=== PATIENT | female | born 2000 | race Caucasian/White ===

== ENCOUNTER 2019-10-24 21:20 | Emergency (ER) | payer SELFPAY ==
[2019-10-24 21:23] VITALS: BP 140/94; PULSE 86; RESP 16; TEMP 37.1; O2SAT 100
--- NOTE | 2019-10-24 21:40 | PC.NURSE ---
Reports that she is having difficulty urinating and is unable to provided urine at this time.
--- NOTE | 2019-10-24 21:48 | PC.NURSE ---
Patient to restroom to try for sample
[2019-10-24 21:52] LABS: Basophils Absolute Auto 0.1 K/mm3 (0.0-0.1); Basophils Percent Auto 0.8 % (0.2-1.2); Eosinophils Absolute Auto 0.1 K/mm3 (0-0.3); Eosinophils Percent Auto 0.9 % (0-4.4); Hematocrit 38.1 % (37.0-47.0); Hemoglobin 12.9 g/dL (12.0-15.0); Immature Granulocyte Absolute 0.02 K/mm3 (0.00-0.031); Immature Granulocyte Percent A 0.2 % (0-0.5); Lymphocytes Absolute Auto 3.24 K/mm3 (0.9-3.2); Lymphocytes Percent Auto 37.9 % (18.3-44.2); Mean Corpuscular HGB Conc 33.9 g/dl (32-36); Mean Corpuscular Hemoglobin 32.7 pg (26-34); Mean Corpuscular Volume 96.7 fl (80-100); Mean Platelet Volume 10.8 fl (7.4-10.4); Monocytes Absolute Auto 0.5 K/mm3 (0.1-0.6); Monocytes Percent Auto 6.1 % (2.6-8.5); Neutrophils Absolute Auto 4.6 K/mm3 (1.3-6.7); Neutrophils Percent Auto 54.1 % (45.5-73.1); Platelet Count Result 227 k/mm3 (150-375); Red Blood Count 3.94 M/mm3 (4.2-5.4); White Blood Count 8.6 K/mm3 (4.5-10.0)
[2019-10-24 22:01] LABS: Add Urine Microscopic? YES; Appearance Urine Cloudy (Clear); Bacteria Urine Trace /hpf; Bilirubin Urine Negative (Negative); Blood Urine 2+ (Negative); Color Urine Yellow (Yellow); Glucose Urine UA Negative (Negative); Ketones Urine Negative (Negative); Leukocyte Esterase Ur 1+ LEU/UL (Negative); Mucus Urine Rare /lpf; Nitrate Urine Negative (Negative); Protein Urine 1+ mg/dL (Negative); Specific Grav Ur 1.017 (1.001-1.035); Squamous Epithelial Cell Urine Many /hpf (Few); Urobilinogen Urine Negative mg/dL (<2.0)
[2019-10-24 22:06] LABS: Anion Gap 10 mmol/L (8-16); Blood Urea Nitrogen 16 mg/dL (7-17); Calcium 9.3 mg/dL (8.4-10.2); Carbon Dioxide 24 mmol/L (22-30); Chloride 104 mmol/L (98-107); Estimated Glomerular Filt Rate > 60; Glucose 97 mg/dL (65-105); Potassium 3.4 mmol/L (3.4-5.0); Sodium 138 mmol/L (137-145)
[2019-10-24 22:26] VITALS: BP 125/77; PULSE 81; RESP 16; TEMP 36.1; O2SAT 100
--- NOTE | 2019-10-24 22:26 | ED.ABDPAIN ---
HPI - Abdominal Pain General Chief Complaint: Abdominal Pain Stated Complaint: kidney problems Time Seen by Provider: 10/24/19 22:15 History of Present Illness HPI narrative: Patient presents with diffuse abdominal pain and bilateral flank pain. She gives it an 8 out of 10. It is diffuse. she has had this for 3 days. She has a history of kidney infection. 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 She has not had any fever with this illness. She currently does not have a PCP or an TOOLMAKER HELPER. Her son is 3 years old. He has no surgical history. Smoke cigarettes, drinks alcohol, and does smoke marijuana. MD elicited complaint: abdominal pain and flank pain Pertinent past history: other (Kidney infections) Onset (ago): day(s) Pain Consistency: constant Location: diffuse Severity: severe Radiation: none Migration to: no migration Exacerbating factors: nothing Relieving factors: nothing Related Data Allergies Allergy/AdvReac Type Severity Reaction Status Date / Time ketorolac [From Toradol] Allergy Itching Verified 10/24/19 21:29 Review of Systems Review of Systems: Narrative: CONSTITUTIONAL: Denies fever, chills, or sweats. EYES: Denies visual changes, redness, or discharge. ENT: Denies rhinorrhea, congestion, sore throat, or otalgia. CARDIOVASCULAR: Denies chest pain, palpitations, or edema. RESPIRATORY: Denies cough or dyspnea. GASTROINTESTINAL: He has abdominal pain, and nausea, vomiting, but not or diarrhea. GENITOURINARY: Denies dysuria or hematuria. SKIN: Denies rash or itching. MUSCULOSKELETAL: Denies back pain, joint pain, or myalgia. NEUROLOGIC: Denies headache, numbness, or weakness. . All systems reviewed & are unremarkable except as noted in HPI and below PMFSH Surgical History Surgical History No pertinent past surgical history Family History Family History (Updated 12/26/10 @ 15:21 by DOCTOR UNKNOWN) Other Hypertension Social History Social History (Updated 10/24/19 @ 22:30 by Cheryl Bey MD) Smoking status: Current every day smoker Alcohol intake: current Substance use: current Substance use type: marijuana Exam Narrative: Exam Narrative: GENERAL: Well-appearing, well-nourished, and rocking in pain. Very thin. HEAD: Normocephalic, atraumatic. EYES: PERRLA and EOMI. ENT: Nares clear, no rhinorrhea or epistaxis. Mucous membranes moist. NECK: Supple. CHEST: Clear to auscultation. No respiratory distress. HEART: Regular rate and rhythm. No murmur heard. Normal peripheral pulses. ABDOMEN: Diffusely tender, nondistended, normal active bowel sounds. EXTREMITIES: Normal range of motion. No edema. SKIN: Warm, dry, no rash. NEURO: No focal deficits. Alert and oriented x3. PSYCH: Normal mood and affect. Course Vital Signs Vital signs: Vital Signs Temperature 98.7 F 10/24/19 21:23 Pulse Rate 86 10/24/19 21:23 Respiratory Rate 16 10/24/19 21:23 Blood Pressure 140/94 H 10/24/19 21:23 Pulse Oximetry 100 10/24/19 21:23 Temperature 97.0 F L 10/24/19 22:26 Pulse Rate 70 10/25/19 00:43 Respiratory Rate 18 10/25/19 00:43 Blood Pressure 114/76 10/25/19 00:43 Pulse Oximetry 98 10/25/19 00:43 MDM - Abdominal Pain Medical Records Attestation: I reviewed the patient's medical records. Lab Data Attestation: I reviewed the patient's lab results. Result diagrams: 10/24/19 21:41 10/24/19 21:41 Labs: Lab Results 10/24/19 10/24/19 10/24/19 Range/Units 21:41 21:41 21:50 WBC 8.6 (4.5-10.0) K/mm3 RBC 3.94 L (4.2-5.4) M/mm3 Hgb 12.9 (12.0-15.0) g/dL Hct 38.1 (37.0-47.0) % MCV 96.7 (80-100) fl MCH 32.7 (26-34) pg MCHC 33.9 (32-36) g/dl RDW 12.0 (11.5-14.5) % Plt Count 227 (150-375) k/mm3 MPV 10.8 H (7.4-10.4) fl Immature Gran % (Auto) 0.2 (0-0.5) % Neut % (Auto) 54.1 (45.5-73.1)
[2019-10-24] MEDS: MORPHINE SULFATE 4 MG/ML INJ IV PUSH ×2 (22:33→23:56)
[2019-10-24] MEDS: SODIUM CHLORIDE 0.9% IV 1,000 ML 999 ML IV CONT (22:34)
--- NOTE | 2019-10-24 22:34 | PC.NURSE ---
Fluids and medication provided at this time.
[2019-10-24] MEDS: ONDANSETRON INJ 4 MG/2 ML VIAL IV PUSH (22:40)
[2019-10-24 23:18] VITALS: BP 123/65; PULSE 67; RESP 16; O2SAT 99
[2019-10-24] MEDS: METOCLOPRAMIDE HCL INJ 10 MG/2 ML VIAL IV PUSH (23:30)
[2019-10-24 23:57] VITALS: BP 122/97; PULSE 83; RESP 16; O2SAT 99
[2019-10-25] MEDS: SODIUM CHLORIDE 0.9% IV 1,000 ML 999 ML IV CONT (00:02)
[2019-10-25 00:43] VITALS: BP 114/76; PULSE 70; RESP 18; O2SAT 98
[2019-10-25 01:04] VITALS: BP 114/75; PULSE 60; RESP 18; O2SAT 99
--- NOTE | 2019-10-31 19:30 | PC.NURSE ---
LATE ENTRY NS stopped prior to pt discharge. This note is being entered to document information to the patient's record. The following information was omitted on [10/31/2019], by [jude zhu].
== END 2019-10-25 01:07 | disposition home or self-care (01) ==
PROVIDERS: Emergency Provider Emergency Medicine
DX: N39.0 Urinary tract infection, site not specified (principal); F17.210 Nicotine dependence, cigarettes, uncomplicated
CPT/HCPCS: 36415; 80048; 81001; 81025; 85025; 87086; 87088; 96361; 96365; 96375; 96376; 99284; J0696; J2270; J2405; J2765; J7030

== ENCOUNTER 2020-01-01 23:08 | Emergency (ER) | payer MEDICAID, SELFPAY ==
--- NOTE | ~2020-01-01 | CT_ITS ---
EXAMINATION: CT abdomen pelvis w con DATE: 01/02/2020 01:20 INDICATION: Abdominal pain. Flank pain. Hematuria. TECHNIQUE: Computed tomography (CT) of the abdomen and pelvis was performed with 100 mL Omnipaque 350 intravenous contrast. Automated exposure control and iterative reconstruction technique were employe d. The dose-length product was 191.52 mGy-cm. COMPARISON: None. FINDINGS: The visualized portions of the lung bases are clear without pneumonia or pleural effusion. The heart size is normal. No pericardial effusion. The liver, gallbladder, spleen, pancreas, adrenal glands, and kidneys are normal. The periuterine and ovarian veins are enlarged, consistent with pelvi c venous insufficiency. There are no dilated loops of bowel. The appendix is normal. There are no pat hologically enlarged lymph nodes. There is trace pelvic ascites. There are chronic bilateral L5 pars defects. There is 3 mm anterolisthesis of L5 on S1. IMPRESSION: 1. Pelvic venous insufficiency. Reviewed, dictated and finalized at location A.
[2020-01-01 23:23] VITALS: BP 138/78; PULSE 97; RESP 14; TEMP 36.4; O2SAT 100
--- NOTE | 2020-01-01 23:36 | PC.NURSE ---
Pt. states she is unable to void.
--- NOTE | 2020-01-01 23:40 | ED.ABDPAIN ---
HPI - Abdominal Pain General Chief Complaint: Abdominal Pain Stated Complaint: hematuria Time Seen by Provider: 01/01/20 23:39 Source: patient Mode of arrival: ambulatory Limitations: no limitations History of Present Illness HPI narrative: Patient is a 19-year-old female who presents for evaluation of dysuria, hematuria and bilateral flank pain. Pt with 24 hours of worsening symptoms. Pt denies fever or chills. She reports general malaise and nausea. Flank pain is aching in nature. No vaginal bleeding. Pt with history of UTIs and had two ciprofloxacin tablets at home which she had leftover from a previous UTI, so she took both of those, but has not improved. Pt reporting history of kidney stones in the past as well. Patient denies any vaginal discharge or vaginal bleeding. Related Data Allergies Allergy/AdvReac Type Severity Reaction Status Date / Time ketorolac [From Toradol] Allergy Itching Verified 01/01/20 23:26 Review of Systems Review of Systems: Narrative: CONSTITUTIONAL: Denies fever, chills, or sweats. ENT: Denies rhinorrhea, congestion, sore throat, or otalgia. CARDIOVASCULAR: Denies chest pain, palpitations, or edema. RESPIRATORY: Denies cough or dyspnea. GASTROINTESTINAL: Reports suprapubic pressure, nausea GENITOURINARY: Denies dysuria or hematuria. SKIN: Denies rash or itching. MUSCULOSKELETAL: Denies back pain, joint pain, reports myalgias NEUROLOGIC: Denies headache, numbness, or weakness. [facility] Past Medical History Medical History Nephrolithiasis Pyelonephritis Recurrent urinary tract infection Surgical History Surgical History No pertinent past surgical history Family History Family History (Updated 12/26/10 @ 15:21 by DOCTOR UNKNOWN) Other Hypertension Social History Social History Smoking status: Current every day smoker Alcohol intake: current Substance use: current Substance use type: marijuana Exam Narrative: Exam Narrative: GENERAL: Awake, alert, conversant HEAD: Normocephalic, atraumatic. EYES: PERRLA and EOMI. ENT: Nares clear, no rhinorrhea or epistaxis. Mucous membranes moist. NECK: Supple. CHEST: No respiratory distress, breathing even and non labored HEART: Regular rate, sinus rhythm ABDOMEN:Non distended, mild tenderness in suprapubic area, bilateral flank tenderness EXTREMITIES: Normal range of motion. No edema. SKIN: Warm, dry, no rash. NEURO:No focal deficits. Alert and oriented x3 Course Vital Signs Vital signs: Vital Signs Temperature 36.4 C 01/01/20 23:23 Pulse Rate 97 01/01/20 23:23 Respiratory Rate 14 01/01/20 23:23 Blood Pressure 138/78 01/01/20 23:23 Pulse Oximetry 100 01/01/20 23:23 Temperature 36.4 C 01/01/20 23:23 Pulse Rate 97 01/01/20 23:23 Respiratory Rate 14 01/01/20 23:23 Blood Pressure 138/78 01/01/20 23:23 Pulse Oximetry 100 01/01/20 23:23 MDM - Abdominal Pain MDM Narrative Medical decision making narrative: Patient presenting for evaluation of flank pain, myalgias, dysuria and hematuria. At the time of assessment, ABCs are intact and vital signs are stable. Patient is afebrile. She has flank pain and mild suprapubic tenderness on exam. Symptoms and findings are concerning for possible pyelonephritis. Patient with leukocytosis that is mild. She has a urinary tract infection. Patient treated with a dose of Rocephin in the ER. CT scan shows no evidence of nephrolithiasis. Patient tolerating oral intake feeling much improved after IV fluids, pain medications. Patient will be discharged home to finish antibiotic course. She was advised to return should her symptoms change or worsen. Differential Diagnosis Differential diagnosis: Likely abdominal pain, constipation, gastroenteritis and other (Pyelonephritis, urinary tract infection) Lab
[2020-01-01 23:49] LABS: Basophils Absolute Auto 0.1 K/mm3 (0.0-0.1); Basophils Percent Auto 0.4 % (0.2-1.2); Eosinophils Absolute Auto 0.1 K/mm3 (0-0.3); Eosinophils Percent Auto 0.6 % (0-4.4); Hematocrit 39.8 % (37.0-47.0); Hemoglobin 13.7 g/dL (12.0-15.0); Immature Granulocyte Absolute 0.05 K/mm3 (0.00-0.031); Immature Granulocyte Percent A 0.4 % (0-0.5); Lymphocytes Absolute Auto 2.27 K/mm3 (0.9-3.2); Lymphocytes Percent Auto 18.3 % (18.3-44.2); Mean Corpuscular HGB Conc 34.4 g/dl (32-36); Mean Corpuscular Hemoglobin 33.2 pg (26-34); Mean Corpuscular Volume 96.4 fl (80-100); Mean Platelet Volume 10.4 fl (7.4-10.4); Monocytes Absolute Auto 0.7 K/mm3 (0.1-0.6); Monocytes Percent Auto 5.6 % (2.6-8.5); Neutrophils Absolute Auto 9.3 K/mm3 (1.3-6.7); Neutrophils Percent Auto 74.7 % (45.5-73.1); Platelet Count Result 205 k/mm3 (150-375); Red Blood Count 4.13 M/mm3 (4.2-5.4); Red Cell Distribution Width 11.9 % (11.5-14.5); White Blood Count 12.4 K/mm3 (4.5-10.0)
[2020-01-01] MEDS: ONDANSETRON INJ 4 MG/2 ML VIAL IV PUSH (23:53)
[2020-01-01] MEDS: SODIUM CHLORIDE 0.9% IV 1,000 ML 999 ML IV CONT (23:53)
[2020-01-02 00:05] LABS: Anion Gap 12 mmol/L (8-16); Blood Urea Nitrogen 13 mg/dL (7-17); Calcium 9.6 mg/dL (8.4-10.2); Carbon Dioxide 23 mmol/L (22-30); Chloride 105 mmol/L (98-107); Estimated CRCL calculation 76 ml/min; Estimated Glomerular Filt Rate > 60; Glucose 105 mg/dL (65-105); Potassium 3.7 mmol/L (3.4-5.0); Sodium 140 mmol/L (137-145)
--- NOTE | 2020-01-02 00:15 | PC.NURSE ---
Pt. states she still cannot void at this time.
[2020-01-02] MEDS: MORPHINE SULFATE (*CRX) 4 MG/ML INJ IV PUSH (00:56)
[2020-01-02 01:00] VITALS: BP 123/65; PULSE 94; RESP 12; O2SAT 90
[2020-01-02 01:08] LABS: Add Urine Microscopic? YES; Appearance Urine Clear (Clear); Bacteria Urine Trace /hpf; Bilirubin Urine Negative (Negative); Blood Urine 2+ (Negative); Color Urine Colorless (Yellow); Glucose Urine UA Negative (Negative); Ketones Urine Negative (Negative); Leukocyte Esterase Ur 2+ LEU/UL (Negative); Nitrate Urine Negative (Negative); Protein Urine Negative (Negative); RBC Urine 0-2 /hpf (0-2); Specific Grav Ur 1.005 (1.001-1.035); Squamous Epithelial Cell Urine Rare /hpf (Few); Urobilinogen Urine Negative mg/dL (<2.0); WBC Urine 51-75 /hpf
[2020-01-02 02:10] VITALS: BP 119/80; PULSE 88; RESP 17; O2SAT 99
== END 2020-01-02 02:10 | disposition home or self-care (01) ==
PROVIDERS: Emergency Medicine; Emergency Provider Emergency Medicine
DX: N12 Tubulo-interstitial nephritis, not specified as acute or chronic (principal); F17.200 Nicotine dependence, unspecified, uncomplicated; Z87.442 Personal history of urinary calculi; I87.2 Venous insufficiency (chronic) (peripheral)
CPT/HCPCS: 36415; 74177; 80048; 81001; 81025; 85025; 87086; 96361; 96365; 96375; 99284; J0131; J0696; J2270; J2405; J7030; Q9967

== ENCOUNTER 2020-01-19 12:09 | Outpatient (CLI) | payer OTHER, MEDICAID, SELFPAY ==
--- NOTE | ~2020-01-19 | US_ITS ---
EXAMINATION: US OB <=14 wk fetus w TV EXAM DATE: 01/19/2020 13:03 INDICATION: Vaginal cramping. Dating. 1st trimester. TECHNIQUE: Pelvic obstetrical transabdominal sonogram was performed by a technologist. There are mu ltiple grayscale and Doppler images available for interpretation. There are no earlier studies of th is gestation for comparison. FINDINGS: Uterus measures 9.2 x 4.3 x 4.6 cm. There is intrauterine gestation sac. The 3 mm crown- rump length corresponds to estimated gestational age by ultrasound of 5 weeks 6 days, estimated date of confinement 09/14/2020. Possible identification of cardiac activity at 110 bpm. Yolk sac not specif ically identified. There is no sonographic evidence of subchorionic hemorrhage. Ovaries are morpho logically normal. IMPRESSION: Early intrauterine gestation sac and pole, possibly with identification of a heart rate. Yolk sac also not definitively confirmed. Consider 1-2 week follow-up ultrasound. Reviewed, dictated and finalized at location B. UCTION STAFF WORKER IMPRESSION: Early intrauterine gestation sac and pole, possibly with yolanda ntification of a heart rate. Yolk sac also not definitively confirmed. Consider 1-2 week follow-up ultrasound.
== END 2020-01-19 12:10 | disposition home or self-care (01) ==
PROVIDERS: Visit Provider Obstetrics & Gynecology Gynecology
DX: O26.841 Uterine size-date discrepancy, first trimester (principal); Z3A.00 Weeks of gestation of pregnancy not specified
CPT/HCPCS: 76801; 76817

== ENCOUNTER 2020-01-22 14:05 | Emergency (ER) | payer OTHER, MEDICAID, SELFPAY ==
[2020-01-22] VITALS (7 sets, daily range): BP systolic 104–128; BP diastolic 68–76; PULSE 69–87; RESP 14–19; TEMP 36.8–36.9; O2SAT 99–100
--- NOTE | ~2020-01-22 | CT_ITS ---
EXAMINATION: CTA chest PE protocol DATE: 01/22/2020 19:33 INDICATION: Shortness of breath. TECHNIQUE: Computed tomography angiography (CTA) of the chest was performed with 100 mL Omnipaque-350 intravenous contrast timed to evaluate the pulmonary arteries. Coronal maximum intensity projection 3D-reconstructions were created by the technologist. Automated exposure control and iterative reconst ruction technique were employed. The dose-length product was 228.07 mGy-cm. COMPARISON: CT abdomen and pelvis 01/02/2020 FINDINGS: There is no pneumonia or pleural effusion. There is a 3 mm nodule in right lung, likely veronica ign. The heart size is normal. No pericardial effusion. There is no pulmonary embolus. There are Schm orl's nodes at multiple levels in the spine. IMPRESSION: 1. No pulmonary embolus. Reviewed, dictated and finalized at location A. ERMAN IMPRESSION: 1. No pulmonary embolus.
--- NOTE | ~2020-01-22 | US_ITS ---
EXAMINATION: US OB <=14 wk fetus w TV DATE: 01/22/2020 16:36 INDICATION: Lower abdominal pain and cramping during first trimester . TECHNIQUE: Real-time pelvic ultrasound utilizing both a transvaginal and transabdominal probe was pe rformed. The interpreting radiologist was not present for the study. COMPARISON: Pelvic ultrasound dated 01/19/[address] abdomen and pelvis dated 01/02/2020 FINDINGS: The uterus measures 8.9 x 4.8 x 4.3 cm. There is an intrauterine gestational sac. A yolk sac and fet al pole are identified. The crown rump length measures 5 mm, which correlates with an estimated gesta tional age of 6 weeks and 2 days which coincides exactly with the earlier study. heart motion i s identified measuring 123 beats per minute (bpm) by M-mode Doppler. Again seen are dilated bilateral gonadal and parametrial veins, left greater than right as was observed on the earlier CT. The right ovary measures 2.6 x 2.2 x 1.2 cm. The left ovary measures 2.4 x 2.2 x 2.0 cm. Vascular francia w identified at both ovaries on color Doppler. There are small amounts of anechoic free fluid along s yolanda the right ovary and in the cul-de-sac. IMPRESSION: 1. Single living fetus with heart rate of 123 bpm. 2. Gestational age by ultrasound of 6 weeks 2 day(s) +/- 4 day(s) with ultrasound estimated date of delivery ([facility]) of 09/14/2020. 2. Prominent bilateral gonadal and parametrial veins, left greater than right is also seen on prior C T which can be seen with pelvic vascular congestion syndrome. Reviewed, dictated and finalized at location A. ESS CHANGE CLERK IMPRESSION: 1. Single living fetus with heart rate of 123 bpm. 2. Gestational age by ultrasound of 6 weeks 2 day(s) +/- 4 day(s) with ultraso und estimated date of delivery ([facility]) of 09/14/2020. 2. Prominent bilateral gonadal and parametrial veins, left greater than right i s also seen on prior CT which can be seen with pelvic vascular congestion syndr ome.
--- NOTE | 2020-01-22 14:55 | ECG_ITS ---
Measurements Intervals [place] Rate: 94 P: 83 WV: 132 QRS: 71 QRSD: 85 T: -5 QT: 337 QTc: 422 Interpretive Statements SINUS RHYTHM BORDERLINE ST-T WAVE ABNORMALITY- INFERIOR LEADS BASELINE WANDER- V2-V6 BORDERLINE ECG Electronically Signed On 01-22-2020 15:49:01 PLANNING SUPERVISOR by Garret Chong D.O.
[2020-01-22 15:12] LABS: Basophils Percent Auto 0.5 % (0.2-1.2); Eosinophils Percent Auto 0.2 % (0-4.4); Hematocrit 39.1 % (37.0-47.0); Hemoglobin 13.6 g/dL (12.0-15.0); Immature Granulocyte Absolute 0.02 K/mm3 (0.00-0.031); Immature Granulocyte Percent A 0.2 % (0-0.5); Lymphocytes Absolute Auto 1.52 K/mm3 (0.9-3.2); Mean Corpuscular HGB Conc 34.8 g/dl (32-36); Mean Corpuscular Hemoglobin 33.2 pg (26-34); Mean Corpuscular Volume 95.4 fl (80-100); Mean Platelet Volume 10.1 fl (7.4-10.4); Monocytes Absolute Auto 0.4 K/mm3 (0.1-0.6); Monocytes Percent Auto 4.7 % (2.6-8.5); Neutrophils Percent Auto 75.4 % (45.5-73.1); Platelet Count Result 204 k/mm3 (150-375); Red Cell Distribution Width 12.3 % (11.5-14.5)
[2020-01-22 15:19] LABS: Anion Gap 13 mmol/L (8-16); Blood Urea Nitrogen 10 mg/dL (7-17); Calcium 9.9 mg/dL (8.4-10.2); Carbon Dioxide 25 mmol/L (22-30); Chloride 102 mmol/L (98-107); Estimated CRCL calculation 86 ml/min; Estimated Glomerular Filt Rate > 60; Glucose 92 mg/dL (65-105); Potassium 3.5 mmol/L (3.4-5.0); Sodium 140 mmol/L (137-145)
--- NOTE | 2020-01-22 15:52 | ED.SOB ---
HPI - SOB/Dyspnea General Chief Complaint: Shortness of Breath/Dyspnea Stated Complaint: 6 weeks , cramping, short of breath Time Seen by Provider: 01/22/20 15:43 Source: patient Mode of arrival: ambulatory Limitations: no limitations History of Present Illness HPI Narrative: Patient is a 20-year-old female complaining of shortness of breath x2 days. Patient also complaining of lower abdominal cramping, states that she is 6 weeks , denies any vaginal bleeding or discharge. Patient denies any chest pain, nausea vomiting diarrhea or fever. Related Data Home Medications Medication Instructions Recorded Confirmed -iciu fum-folic ac-om3 pkg PO 01/22/20 [Daily ] Allergies Allergy/AdvReac Type Severity Reaction Status Date / Time ketorolac [From Toradol] Allergy Mild Itching Verified 01/22/20 15:37 Review of Systems Review of Systems: All systems reviewed & are unremarkable except as noted in HPI and below Constitutional: Constitutional: Denies body ache(s), Denies chills, Denies excessive sweating, Denies fatigue, Denies fever(s), Denies headache(s), Denies lethargy, Denies malaise, Denies weakness and Denies weight loss Eyes: Eyes: Denies blurry vision, Denies change in vision and Denies loss of vision ENT: Denies dizziness, Denies ear discharge, Denies headache(s), Denies lip swelling, Denies epistaxis, Denies nasal congestion, Denies neck pain, Denies throat swelling and Denies tongue swelling Cardiovascular: Cardiovascular: Denies chest pain, Denies chest pain at rest, Denies chest pain with activity, Denies diaphoresis, Denies rapid heart rate, Denies edema, Denies irregular heart rhythm, Denies lightheadedness and Denies palpitations Respiratory: Respiratory: Denies chest congestion, Denies cough and Denies hemoptysis Gastrointestinal: Gastrointestinal: Denies abdominal pain, Denies melena, Denies hematochezia, Denies diarrhea, Denies nausea, Denies vomiting and Denies hematemesis Musculoskeletal: Musculoskeletal: Denies abnormal gait, Denies deformity, Denies joint swelling, Denies limited range of motion, Denies neck pain and Denies numbness Neurologic: Denies Abnormal speech present, Denies abnormal gait, Denies confusion, Denies dizziness, Denies headache(s), Denies focal weakness, Denies loss of vision, Denies numbness, Denies Other visual disturbances, Denies Sensory deficit (Neuro) and Denies weakness Psychiatric: Psychiatric: Denies confusion, Denies depression, Denies auditory hallucinations, Denies homicidal ideation and Denies suicidal ideation Endocrine: Endocrine: Denies cold intolerance, Denies excessive sweating, Denies fatigue, Denies heat intolerance and Denies palpitations Hematologic/Lymphatic: Hematologic/Lymphatic: Denies easy bleeding and Denies easy bruising Allergic/Immunologic: Allergic/Immunologic: Denies lip swelling, Denies throat swelling and Denies tongue swelling PMFSH Past Medical History Medical History Nephrolithiasis Pyelonephritis Recurrent urinary tract infection Surgical History Surgical History No pertinent past surgical history Family History Family History (Updated 12/26/10 @ 15:21 by DOCTOR UNKNOWN) Other Hypertension Social History Social History Smoking status: Current every day smoker Alcohol intake: current Substance use: current Substance use type: marijuana Gender identity (if verbalized by the patient): Female Exam Const: General: cooperative, healthy appearing, comfortable, no acute distress, well developed, alert and awake; No confusion Orientation/consciousness: oriented to person, oriented to place, oriented to time, patient oriented x3 and No confusion Limitations: no limitations HENMT: Head: normal to inspection, normocephalic and atrau
[2020-01-22 16:37] LABS: D Dimer 0.68 ug/mL (<0.48)
[2020-01-22 17:07] LABS: Add Urine Microscopic? YES; Appearance Urine Clear (Clear); Bacteria Urine Trace /hpf; Bilirubin Urine Negative (Negative); Blood Urine Negative (Negative); Color Urine Yellow (Yellow); Glucose Urine UA Negative (Negative); Ketones Urine Trace mg/dL (Negative); Leukocyte Esterase Ur Negative LEU/UL (Negative); Mucus Urine Rare /lpf; Nitrate Urine Negative (Negative); Protein Urine Negative (Negative); RBC Urine 0-2 /hpf (0-2); Specific Grav Ur 1.013 (1.001-1.035); Urobilinogen Urine Negative mg/dL (<2.0); WBC Urine 0-3 /hpf
[2020-01-22] MEDS: SODIUM CHLORIDE 0.9% IV 1,000 ML 999 ML IV CONT (19:37)
== END 2020-01-22 20:39 | disposition home or self-care (01) ==
PROVIDERS: Emergency Medicine; Emergency Provider Emergency Medicine
DX: O26.891 Other specified pregnancy related conditions, first trimester (principal); R06.00 Dyspnea, unspecified; R10.9 Unspecified abdominal pain; O99.331 Smoking (tobacco) complicating pregnancy, first trimester; F17.200 Nicotine dependence, unspecified, uncomplicated; Z87.442 Personal history of urinary calculi; Z87.440 Personal history of urinary (tract) infections; R94.31 Abnormal electrocardiogram [ECG] [EKG]; Z3A.01 Less than 8 weeks gestation of pregnancy
CPT/HCPCS: 36415; 71275; 76801; 76817; 80048; 81001; 84702; 85025; 85380; 93005; 96360; 99284; J7030; Q9967

== ENCOUNTER 2020-01-25 19:07 | Emergency (ER) | payer OTHER, MEDICAID, SELFPAY ==
[2020-01-25 19:36] VITALS: BP 131/67; PULSE 75; RESP 17; TEMP 36.5; O2SAT 100
--- NOTE | 2020-01-25 20:01 | ED.GENADULT ---
HPI - General Adult General Chief complaint: TREE TRIMMER Stated complaint: 6 weeks , spotting Time Seen by Provider: 01/25/20 19:45 Source: RN notes reviewed History of Present Illness HPI narrative: Patient presents emergency department from home for vaginal spotting. Patient states the itch 2 episodes of wiping with spotting this evening. States she is approximately [address] Baker. Patient was seen in the emergency department earlier this week with a ultrasound showing live intrauterine . She does note mild lower abdominal cramping she denies any fevers or chills chest pain shortness of breath or any other symptoms. Related Data Home Medications Medication Instructions Recorded Confirmed [id number] fum-folic ac-om3 pkg PO 01/22/20 [Daily ] Allergies Allergy/AdvReac Type Severity Reaction Status Date / Time ketorolac [From Toradol] Allergy Mild Itching Verified 01/25/20 19:38 Review of Systems Review of Systems: Narrative: Gen.: Denies fevers or chills ENT: Denies congestion Respiratory: Denies shortness of breath or cough CV: Denies chest pain or palpitations GI: Reports lower abdominal cramping, see HPI Musculoskeletal: Denies back pain or muscle pain Neuro: Denies numbness, tingling, weakness or focal weakness Skin: Denies rash Except as documented, all other systems reviewed and negative [facility] Past Medical History Medical History Nephrolithiasis Pyelonephritis Recurrent urinary tract infection Surgical History Surgical History No pertinent past surgical history Family History Family History (Updated 12/26/10 @ 15:21 by DOCTOR UNKNOWN) Other Hypertension Social History Social History Smoking status: Current every day smoker Alcohol intake: current Substance use: current Substance use type: marijuana Gender identity (if verbalized by the patient): Female Exam Narrative: Exam Narrative: APPEARANCE: No acute distress, nontoxic, resting in bed EYES: EOMI HEENT: Normocephalic, atraumatic, OMM RESPIRATORY: No respiratory distress Clear to auscultation bilaterally with no rhonchi wheezing or rales. CARDIOVASCULAR: Regular rate and rhythm without murmurs rubs or gallops. ABDOMINAL: Soft, nontender, nondistended, no rebound or guarding : Normal external exam, small amount of thick white discharge in vaginal canal cervix is closed the cervix has a small area of erythema at the 7 to 8 o'clock position no active bleeding the cervix is closed MUSCULOSKELETAl: Moves all extremities. No clubbing, cyanosis or edema. NEURO: Awake and alert. Following commands, speech normal, no focal deficits SKIN:: Warm, dry. No rashes lesions or abrasions PSYCHIATRIC: Normal affect/mood, Course Course Emergency Course: Reviewed old records. Patient has a positive blood type from 02/13/2016. Reviewed old ultrasound showing live intrauterine from 01/22/2020 Called and discussed with Dr. Baker presentation work-up agrees with plan for discharge and follow-up as an outpatient Discussed with patient results of workup and diagnosis. Discussed need for follow-up with primary care, proper use of medication, and reasons to return to the emergency department. Patient understands and agrees to current treatment plan Vital Signs Vital signs: Vital Signs Temperature 97.7 F 01/25/20 19:36 Pulse Rate 75 01/25/20 19:36 Respiratory Rate 17 01/25/20 19:36 Blood Pressure 131/67 01/25/20 19:36 Pulse Oximetry 100 01/25/20 19:36 Temperature 97.7 F 01/25/20 19:36 Pulse Rate 75 01/25/20 19:36 Respiratory Rate 17 01/25/20 19:36 Blood Pressure 131/67 01/25/20 19:36 Pulse Oximetry 100 01/25/20 19:36 Medical Decision Making Vital Signs Vital Signs: Vital Signs
[2020-01-25 20:26] LABS: Basophils Absolute Auto 0.1 K/mm3 (0.0-0.1); Basophils Percent Auto 0.9 % (0.2-1.2); Eosinophils Absolute Auto 0.2 K/mm3 (0-0.3); Eosinophils Percent Auto 2.1 % (0-4.4); Hematocrit 40.5 % (37.0-47.0); Hemoglobin 13.9 g/dL (12.0-15.0); Immature Granulocyte Absolute 0.02 K/mm3 (0.00-0.031); Immature Granulocyte Percent A 0.2 % (0-0.5); Immature Platelet Fraction Pct 14.1 % (0.9-11.2); Lymphocytes Absolute Auto 2.08 K/mm3 (0.9-3.2); Lymphocytes Percent Auto 25.4 % (18.3-44.2); Mean Corpuscular HGB Conc 34.3 g/dl (32-36); Mean Corpuscular Hemoglobin 33.3 pg (26-34); Mean Corpuscular Volume 97.1 fl (80-100); Mean Platelet Volume 11.8 fl (7.4-10.4); Monocytes Absolute Auto 0.6 K/mm3 (0.1-0.6); Monocytes Percent Auto 7.5 % (2.6-8.5); Neutrophils Absolute Auto 5.2 K/mm3 (1.3-6.7); Neutrophils Percent Auto 63.9 % (45.5-73.1); Platelet Count Result 142 k/mm3 (150-375); Red Blood Count 4.17 M/mm3 (4.2-5.4); Red Cell Distribution Width 12.2 % (11.5-14.5); White Blood Count 8.2 K/mm3 (4.5-10.0)
[2020-01-25 20:27] LABS: Add Urine Microscopic? NO; Appearance Urine Clear (Clear); Bilirubin Urine Negative (Negative); Blood Urine Negative (Negative); Color Urine Colorless (Yellow); Glucose Urine UA Negative (Negative); Ketones Urine Negative (Negative); Leukocyte Esterase Ur Negative LEU/UL (Negative); Nitrate Urine Negative (Negative); Protein Urine Negative (Negative); Specific Grav Ur 1.006 (1.001-1.035); Urobilinogen Urine Negative mg/dL (<2.0)
[2020-01-25 21:54] VITALS: BP 115/63; PULSE 76; RESP 16; TEMP 36.9; O2SAT 100
== END 2020-01-25 21:55 | disposition home or self-care (01) ==
PROVIDERS: Emergency Provider Emergency Medicine; Referring Provider Internal Medicine
DX: O20.0 Threatened abortion (principal); Z87.442 Personal history of urinary calculi; Z87.440 Personal history of urinary (tract) infections; F17.200 Nicotine dependence, unspecified, uncomplicated; Z3A.01 Less than 8 weeks gestation of pregnancy
CPT/HCPCS: 36415; 81003; 84702; 85025; 85055; 99283

== ENCOUNTER 2020-01-31 07:27 | Outpatient (CLI) | payer OTHER, SELFPAY ==
--- NOTE | ~2020-01-31 | US_ITS ---
EXAMINATION: US OB <= 14 weeks fetus EXAM DATE: 01/31/2020 07:57 INDICATION: Viability. Interval vaginal spotting. 1st trimester. TECHNIQUE: Pelvic obstetrical transabdominal sonogram was performed by a technologist. There are mu ltiple grayscale and Doppler images available for interpretation. Comparison is made to prior examina tion from 01/22/2020. FINDINGS: Uterus measures 10.2 x 8.3 x 5.9 cm. There is intrauterine gestation sac. pole with heart rate confirmed at 152 beats per minute. The 10 mm crown-rump length corresponds to estimated gestational age by ultrasound of 7 weeks 1 day. Yolk sac is identified. Development of small to mo derate-sized subchorionic hemorrhage measuring 2.3 x 0.7 x 1.7 cm. The left ovary was identified and is morphologically normal. IMPRESSION: 1. Live intrauterine gestation. 2. Development of small to moderate-sized subchorionic hematoma. Reviewed, dictated and finalized at location A. ING MACHINE OPERATOR AUTOMATIC
== END 2020-01-31 07:28 | disposition home or self-care (01) ==
PROVIDERS: Visit Provider Obstetrics & Gynecology Gynecology
DX: O46.91 Antepartum hemorrhage, unspecified, first trimester (principal); Z3A.01 Less than 8 weeks gestation of pregnancy
CPT/HCPCS: 76801

== ENCOUNTER 2020-02-10 14:05 | Emergency (ER) | payer OTHER, SELFPAY ==
[2020-02-10 14:11] VITALS: BP 133/74; PULSE 90; RESP 16; TEMP 36.3; O2SAT 100
[2020-02-10 14:31] LABS: Basophils Percent Auto 0.3 % (0.2-1.2); Eosinophils Percent Auto 0.1 % (0-4.4); Hematocrit 39.6 % (37.0-47.0); Hemoglobin 13.8 g/dL (12.0-15.0); Immature Granulocyte Absolute 0.03 K/mm3 (0.00-0.031); Immature Granulocyte Percent A 0.3 % (0-0.5); Lymphocytes Absolute Auto 1.66 K/mm3 (0.9-3.2); Lymphocytes Percent Auto 16.9 % (18.3-44.2); Mean Corpuscular HGB Conc 34.8 g/dl (32-36); Mean Corpuscular Hemoglobin 33.3 pg (26-34); Mean Corpuscular Volume 95.7 fl (80-100); Mean Platelet Volume 10.2 fl (7.4-10.4); Monocytes Absolute Auto 0.6 K/mm3 (0.1-0.6); Monocytes Percent Auto 5.8 % (2.6-8.5); Neutrophils Absolute Auto 7.6 K/mm3 (1.3-6.7); Neutrophils Percent Auto 76.6 % (45.5-73.1); Platelet Count Result 221 k/mm3 (150-375); Red Blood Count 4.14 M/mm3 (4.2-5.4); Red Cell Distribution Width 12.2 % (11.5-14.5); White Blood Count 9.9 K/mm3 (4.5-10.0)
[2020-02-10 14:47] LABS: Alanine Aminotransferase 20 U/L (4-35); Albumin Level 4.6 g/dL (3.5-5.1); Alkaline Phosphatase 57 U/L (38-126); Anion Gap 14 mmol/L (8-16); Aspartate Amino Transferase 25 U/L (14-36); Bilirubin,Total 0.7 mg/dL (0.2-1.3); Blood Urea Nitrogen 11 mg/dL (7-17); Calcium 9.5 mg/dL (8.4-10.2); Carbon Dioxide 22 mmol/L (22-30); Chloride 103 mmol/L (98-107); Estimated CRCL calculation 101 ml/min; Estimated Glomerular Filt Rate > 60; Glucose 94 mg/dL (65-105); Lipase 125 U/L (23-300); Potassium 3.8 mmol/L (3.4-5.0); Sodium 139 mmol/L (137-145)
--- NOTE | 2020-02-10 14:52 | ED.NAVMDI ---
HPI - Nausea/Vomiting/Diarrhea General Chief complaint: Nausea/Vomiting/Diarrhea Stated complaint: N/V - 8 weeks Time Seen by Provider: 02/10/20 14:22 Source: patient Mode of arrival: ambulatory Limitations: no limitations History of Present Illness HPI Narrative: This is a 20-year-old at about 8 weeks , presents to the emergency department for nausea vomiting. Reports this has been ongoing for the last 2 weeks, but worsened today. Reports today she has not been able to keep anything down. She has been taking Unisom at home without relief. Denies fever, abdominal pain, dysuria, or vaginal bleeding. Related Data Home Medications Medication Instructions Recorded Confirmed [id number] fum-folic ac-om3 pkg PO 01/22/20 [Daily ] rnwelmzjba-lfkalnqcjkblp-wbtc 1 cap PO Q4-6H PRN 02/10/20 [Fioricet] sertraline [Zoloft] 50 mg PO HS 02/10/20 Allergies Allergy/AdvReac Type Severity Reaction Status Date / Time ketorolac [From Toradol] Allergy Mild Itching Verified 02/10/20 14:13 Review of Systems Review of Systems: Narrative: CONSTITUTIONAL: Denies fever GASTROINTESTINAL: Reports nausea, vomiting and diarrhea. Denies abdominal pain GENITOURINARY: Denies dysuria All systems reviewed & are unremarkable except as noted in HPI and below PMFSH Past Medical History Medical History Nephrolithiasis Pyelonephritis Recurrent urinary tract infection Surgical History Surgical History No pertinent past surgical history Family History Family History (Updated 12/26/10 @ 15:21 by DOCTOR UNKNOWN) Other Hypertension Social History Social History (Updated 02/10/20 @ 14:56 by Erika Hernández PA-C) Smoking status: Former smoker Alcohol intake: current Substance use: former Substance use type: marijuana Gender identity (if verbalized by the patient): Female Exam Narrative: Exam Narrative: GENERAL: Well-appearing, well-nourished, and in no acute distress. HEAD: Normocephalic, atraumatic. EYES: EOMI. CHEST: Clear to auscultation. No respiratory distress. No wheezes rales or rhonchi HEART: Regular rate and rhythm. No murmur heard. Normal peripheral pulses. ABDOMEN: Soft, nontender, nondistended, normal active bowel sounds. No CVA tenderness EXTREMITIES: Normal range of motion. No edema. SKIN: Warm, dry, no rash. NEURO: No focal deficits. Alert and oriented x3. PSYCH: Normal mood and affect Course Consultations Consultation #1: Spoke with Dr. Ewing about patient and work-up. Patient will be given some Zofran for home and instructed on Unisom and B6. Date: 02/10/20 Time: 17:22 Vital Signs Vital signs: Vital Signs Temperature 97.3 F L 02/10/20 14:11 Pulse Rate 90 02/10/20 14:11 Respiratory Rate 16 02/10/20 14:11 Blood Pressure 133/74 02/10/20 14:11 Pulse Oximetry 100 02/10/20 14:11 Temperature 97.3 F L 02/10/20 14:11 Pulse Rate 90 02/10/20 14:11 Respiratory Rate 16 02/10/20 14:11 Blood Pressure 133/74 02/10/20 14:11 Pulse Oximetry 100 02/10/20 14:11 Procedures Other Procedure Procedure 1: Other Procedure: Bedside ultrasound performed with intrauterine gestation with cardiac motion MDM - Nausea/Vomiting/Diarrhea MDM Narrative Medical decision making narrative: Patient presents emergency department for nausea and vomiting in . Reports she has been having trouble with this for the last 2 weeks, but was not able to keep anything down today. She is afebrile and nontoxic-appearing. Abdominal exam is benign. CBC and metabolic panel without concerning findings. Lipase is normal. UA with 10-15 white blood cells and 1+ leuk esterase, but also moderate squamous epithelial cells. Patient is asymptomatic. This will go for culture. Patient was hydrated with IV fluids while in the ED and given Reglan and Ben[place]ry
[2020-02-10] MEDS: METOCLOPRAMIDE HCL INJ 10 MG/2 ML VIAL IV PUSH (15:14)
[2020-02-10] MEDS: diphenhydrAMINE HCl INJ 50 MG/ML VIAL 25 MG IV PUSH (15:14)
[2020-02-10] MEDS: SODIUM CHLORIDE 0.9% IV 1,000 ML 999 ML IV CONT ×2 (15:14→15:59)
[2020-02-10 15:29] LABS: Add Urine Microscopic? YES; Appearance Urine Clear (Clear); Bacteria Urine Trace /hpf; Bilirubin Urine Negative (Negative); Blood Urine Negative (Negative); Color Urine Yellow (Yellow); Glucose Urine UA Negative (Negative); Ketones Urine 2+ mg/dL (Negative); Leukocyte Esterase Ur 1+ LEU/UL (Negative); Mucus Urine Rare /lpf; Nitrate Urine Negative (Negative); Protein Urine Negative (Negative); RBC Urine 0-2 /hpf (0-2); Specific Grav Ur 1.021 (1.001-1.035); Squamous Epithelial Cell Urine Moderate /hpf (Few); Urobilinogen Urine Negative mg/dL (<2.0)
[2020-02-10 17:38] VITALS: BP 109/80; PULSE 99; RESP 18; O2SAT 98
--- NOTE | 2020-02-18 10:51 | PC.NURSE ---
LATE ENTRY This note is being entered to document information to the patient's record. The following information was omitted on [02/10/20], by [Parvin]. NS stopped at 1659 on 02/10/20
== END 2020-02-10 17:38 | disposition home or self-care (01) ==
PROVIDERS: Emergency Medicine; Emergency Provider Emergency Medicine
DX: O21.9 Vomiting of pregnancy, unspecified (principal); Z87.442 Personal history of urinary calculi; Z87.440 Personal history of urinary (tract) infections; Z87.891 Personal history of nicotine dependence; Z3A.01 Less than 8 weeks gestation of pregnancy
CPT/HCPCS: 36415; 80053; 81001; 81025; 83690; 85025; 87086; 87088; 96361; 96374; 96375; 99284; J1200; J2765; J7030

== ENCOUNTER 2020-02-14 20:59 | Emergency (ER) | payer OTHER, SELFPAY ==
[2020-02-14 21:01] VITALS: BP 152/80; PULSE 88; RESP 16; TEMP 36.6; O2SAT 100
[2020-02-14 21:36] LABS: Basophils Absolute Auto 0.1 K/mm3 (0.0-0.1); Basophils Percent Auto 0.5 % (0.2-1.2); Eosinophils Absolute Auto 0.2 K/mm3 (0-0.3); Eosinophils Percent Auto 1.6 % (0-4.4); Hematocrit 36.9 % (37.0-47.0); Hemoglobin 12.9 g/dL (12.0-15.0); Immature Granulocyte Absolute 0.03 K/mm3 (0.00-0.031); Immature Granulocyte Percent A 0.3 % (0-0.5); Lymphocytes Absolute Auto 2.81 K/mm3 (0.9-3.2); Lymphocytes Percent Auto 30.6 % (18.3-44.2); Mean Corpuscular Hemoglobin 33.3 pg (26-34); Mean Corpuscular Volume 95.3 fl (80-100); Mean Platelet Volume 10.3 fl (7.4-10.4); Monocytes Absolute Auto 0.6 K/mm3 (0.1-0.6); Monocytes Percent Auto 6.9 % (2.6-8.5); Neutrophils Absolute Auto 5.5 K/mm3 (1.3-6.7); Neutrophils Percent Auto 60.1 % (45.5-73.1); Platelet Count Result 231 k/mm3 (150-375); Red Blood Count 3.87 M/mm3 (4.2-5.4); White Blood Count 9.2 K/mm3 (4.5-10.0)
[2020-02-14 21:51] VITALS: BP 123/72; PULSE 70
[2020-02-14 21:53] VITALS: BP 111/77; PULSE 72
[2020-02-14 21:54] VITALS: BP 121/82; PULSE 92
--- NOTE | 2020-02-14 22:32 | ED.GENADULT ---
HPI - General Adult General Chief complaint: Vaginal Bleeding Stated complaint: vaginal bleeding/ 9.5 weeks Time Seen by Provider: 02/14/20 21:14 History of Present Illness HPI narrative: Patient is a 20-year-old female that presents emerged part with chief complaint of vaginal bleeding. The patient states that she started bleeding just prior to arrival states she is approximately 9-1/2 weeks and has had some spotting during this so far. Patient states that she had an ultrasound recently that showed that she had a subchorionic hemorrhage and did not understand that she could bleed if she had this. The patient states she attempted to call her OB who did not call her back after she called the exchange. Patient denies chest pain denies shortness of breath reports she is a G2, P1 patient does report that she is Rh+. Related Data Home Medications Medication Instructions Recorded Confirmed [id number] fum-folic ac-om3 pkg PO 01/22/20 [Daily ] muefqorswl-oxpxonryhqvva-lauk 1 cap PO Q4-6H PRN 02/10/20 [Fioricet] sertraline [Zoloft] 50 mg PO HS 02/10/20 Allergies Allergy/AdvReac Type Severity Reaction Status Date / Time ketorolac [From Toradol] Allergy Mild Itching Verified 02/14/20 20:59 Review of Systems Review of Systems: Narrative: CONSTITUTIONAL: Denies fever, chills, or sweats. EYES: Denies visual changes, redness, or discharge. ENT: Denies rhinorrhea, congestion, sore throat, or otalgia. CARDIOVASCULAR: Denies chest pain, palpitations, or edema. RESPIRATORY: Denies cough or dyspnea. GASTROINTESTINAL: Denies abdominal pain, nausea, vomiting, or diarrhea. GENITOURINARY: Denies dysuria or hematuria. SKIN: Denies rash or itching. MUSCULOSKELETAL: Denies back pain, joint pain, or myalgia. NEUROLOGIC: Denies headache, numbness, or weakness. PSYCHIATRIC: Denies anxiety or depression. A 10 system review of systems was completed on the patient and is negative except for what is stated in the HPI. Nursing and ancillary documentation was reviewed. [facility] Past Medical History Medical History Nephrolithiasis Pyelonephritis Recurrent urinary tract infection Surgical History Surgical History No pertinent past surgical history Family History Family History (Updated 12/26/10 @ 15:21 by DOCTOR UNKNOWN) Other Hypertension Social History Social History Smoking status: Former smoker Alcohol intake: current Substance use: former Substance use type: marijuana Gender identity (if verbalized by the patient): Female Exam Narrative: Exam Narrative: GENERAL: Well-appearing, well-nourished, and in no acute distress. HEAD: Normocephalic, atraumatic. EYES: PERRLA and EOMI. ENT: Nares clear, no rhinorrhea or epistaxis. Mucous membranes moist. NECK: Supple. CHEST: Clear to auscultation. No respiratory distress. HEART: Regular rate and rhythm. No murmur heard. Normal peripheral pulses. ABDOMEN: Soft, nontender, nondistended, normal active bowel sounds. EXTREMITIES: Normal range of motion. No edema. SKIN: Warm, dry, no rash. NEURO: No focal deficits. Alert and oriented x3. PSYCH: Normal mood and affect. Course Vital Signs Vital signs: Vital Signs Temperature 36.6 C 02/14/20 21:01 Pulse Rate 88 02/14/20 21:01 Respiratory Rate 16 02/14/20 21:01 Blood Pressure 152/80 H 02/14/20 21:01 Pulse Oximetry 100 02/14/20 21:01 Temperature 36.6 C 02/14/20 21:01 Pulse Rate 92 02/14/20 21:54 Respiratory Rate 16 02/14/20 21:01 Blood Pressure 121/82 02/14/20 21:54 Pulse Oximetry 100 02/14/20 21:01 Medical Decision Making Vital Signs Vital Signs: Vital Signs Temperature 36.6 C 02/14/20 21:01 Pulse Rate 88 02/14/20 21:01 Respiratory Rate 16 1
[2020-02-14 22:49] VITALS: BP 128/72; PULSE 68; RESP 18; O2SAT 99
== END 2020-02-14 22:51 | disposition home or self-care (01) ==
PROVIDERS: Emergency Medicine; Emergency Provider Emergency Medicine
DX: O20.0 Threatened abortion (principal); Z3A.09 9 weeks gestation of pregnancy; Z87.891 Personal history of nicotine dependence
CPT/HCPCS: 36415; 84702; 85025; 85461; 99284

== ENCOUNTER 2020-02-29 10:46 | Outpatient (CLI) | payer MEDICAID, SELFPAY ==
--- NOTE | ~2020-02-29 | US_ITS ---
EXAMINATION: US OB <= 14 weeks fetus DATE: 02/29/2020 13:03 INDICATION: Subchorionic hemorrhage. Follow-up. TECHNIQUE: Real-time transabdominal obstetric ultrasound. FINDINGS: Comparison to ultrasound dated 01/31/2020 The uterus measures 13.9 x 9.6 x 8.9 cm. There is an intrauterine gestational sac, with pole id entified. The crown rump length measures 5.14 cm. heart tones are identified measuring 157 BPM . The ovaries are not visualized. There is a small subchorionic hemorrhage measuring 1.7 x 1.2 x 0.5 cm compared with 2.3 x 1.7 x 0.7 cm ultrasound dated 01/31/2020. IMPRESSION: 1. SL IUP with an EGA of 11 weeks, 5 days (EDC by initial ultrasound of 09/14/2020). 2: Small subchorionic hemorrhage. Reviewed, dictated and finalized at location A. RAL STATION OPERATOR IMPRESSION: 1. SL IUP with an EGA of 11 weeks, 5 days (EDC by initial ultrasound of 09/15/19 21). 2: Small subchorionic hemorrhage.
== END 2020-02-29 10:47 | disposition home or self-care (01) ==
PROVIDERS: Visit Provider Obstetrics & Gynecology Gynecology
DX: O36.8910 Maternal care for other specified fetal problems, first trimester, not applicable or unspecified (principal); Z3A.11 11 weeks gestation of pregnancy
CPT/HCPCS: 76801

== ENCOUNTER 2020-03-28 13:49 | Outpatient (CLI) | payer MEDICAID, SELFPAY ==
--- NOTE | ~2020-03-28 | US_ITS ---
EXAMINATION: US OB limited DATE: 03/28/2020 14:28 INDICATION: Subchorionic hematoma TECHNIQUE: Real-time ultrasound of the pelvis was performed. The interpreting radiologist was not pre sent for the study. COMPARISON: None. FINDINGS: There is a single living fetus in breech presentation. The placenta is posterior. No evident subchor ionic hematoma. heart rate is 154 beats per minute (bpm). The amniotic fluid is subjectively no rmal. IMPRESSION: 1. Single living fetus in breech presentation with heart rate of 154 bpm. 2. No evident residual subchorionic hematoma. Reviewed, dictated and finalized at location A. OR ORACLE DBA IMPRESSION: 1. Single living fetus in breech presentation with heart rate of 154 bpm . 2. No evident residual subchorionic hematoma.
== END 2020-03-28 13:50 | disposition home or self-care (01) ==
PROVIDERS: Visit Provider Obstetrics & Gynecology Gynecology
DX: O36.8920 Maternal care for other specified fetal problems, second trimester, not applicable or unspecified (principal); Z3A.00 Weeks of gestation of pregnancy not specified
CPT/HCPCS: 76815

== ENCOUNTER 2020-04-21 15:14 | Outpatient (CLI) | payer MEDICAID, SELFPAY ==
--- NOTE | ~2020-04-21 | US_ITS ---
EXAMINATION: US OB /maternal detail DATE: 04/21/2020 16:09 INDICATION: survey TECHNIQUE: Multiple obstetric sonographic images performed. FINDINGS: Comparison to multiple prior studies sequentially, with oldest reviewed study dated 2019. There is a single living fetus in breech presentation. The placenta is fundal without placenta previ a. Amniotic fluid volume is subjectively normal. cardiac activity and movement is noted with a heart rate of 149 beats per minute. The following anatomy was identified as normal: 4 chamber heart 3 vessel cord cord insertion kidneys urinary bladder stomach spine diaphragm ventricles cisterna magna cerebellum The following biometric data were obtained: BPD: 45mm corresponds to gestational age 19 weeks 4 days. Head circumference: 169 mm corresponds to gestational age 19 weeks 4 days. Abdominal circumference: 152 mm corresponds to gestational age 20 weeks 3 days. Femur length: 29 mm corresponds to gestational age 19 weeks 0 days. Head circumference to abdominal circumference ratio: 1.11 (normal range for expected gestational age is 1.08-1.26). Estimated weight: 311 grams +/- 47 grams using Hadlock method. IMPRESSION: 1: Single living intrauterine with an estimated gestational age of 19weeks 1days by initial ultrasound measurements, with an EDC of 09/14/2020 in breech presentation. 2. Normal survey. Reviewed, dictated and finalized at location A. ICULTURAL TECHNICAL OFFICER IMPRESSION: 1: Single living intrauterine with an estimated gestational age of 19 weeks 1days by initial ultrasound measurements, with an EDC of 09/14/2020 in sandi ech presentation. 2. Normal survey.
== END 2020-04-21 15:15 | disposition home or self-care (01) ==
PROVIDERS: Visit Provider Obstetrics & Gynecology Gynecology
DX: Z36.9 Encounter for antenatal screening, unspecified (principal); Z3A.19 19 weeks gestation of pregnancy
CPT/HCPCS: 76805

== ENCOUNTER 2020-04-26 11:21 | Observation (INO) | payer MEDICAID, SELFPAY ==
[2020-04-26 11:53] VITALS: BP 116/73; PULSE 87; TEMP 37.1
[2020-04-26 11:55] VITALS: BMI 18.6
--- NOTE | 2020-04-26 11:55 | OBADM ---
This patient, Ira Vieria, admitted to the OB room 113 at 1121 as observation for c/o not feeling baby move since yesterday, N&V for 3 days that has worsened today, cramping/crontractions for 3 days that has become every 10 mins today, headache, and back pain. Patient/family oriented to hospital policies and general routines including ID bracelet, bed and alarms, visiting hours, pain management, procedures, bathroom and other care routines, personal items, smoking policy, room service/diet, and visiting hours. Patient are encouraged to report perceived risks to care and to ask questions if they do not understand what they are told or what they should do.
[2020-04-26 12:00] VITALS: BP 102/63; PULSE 96
[2020-04-26 13:00] VITALS: BP 115/66; PULSE 79
[2020-04-26] MEDS: ONDANSETRON INJ 4 MG/2 ML VIAL IV PUSH (13:18)
[2020-04-26] MEDS: DEXTROSE 5%/LACTATED RINGERS 1,000 ML 999 ML IV CONT (13:18)
[2020-04-26 13:46] LABS: Add Urine Microscopic? YES; Appearance Urine Clear (Clear); Bacteria Urine Trace /hpf; Bilirubin Urine Negative (Negative); Blood Urine Negative (Negative); Color Urine Straw (Yellow); Glucose Urine UA Negative (Negative); Ketones Urine Negative (Negative); Leukocyte Esterase Ur 3+ LEU/UL (Negative); Nitrate Urine Negative (Negative); Protein Urine Negative (Negative); RBC Urine 0-2 /hpf (0-2); Specific Grav Ur 1.011 (1.001-1.035); Squamous Epithelial Cell Urine Many /hpf (Few); Urobilinogen Urine Negative mg/dL (<2.0); WBC Urine 0-3 /hpf
[2020-04-26 14:00] VITALS: BP 104/57; PULSE 68
[2020-04-26 14:35] VITALS: TEMP 36.4
[2020-04-26 15:00] VITALS: BP 119/64; PULSE 79
--- NOTE | 2020-04-30 15:54 | PM.OBTRLD ---
OB - Triage/Final Diagnosis Visit Information Reason for evaluation: threatened labor and other (nausea and vomiting) Comments/Additional reasons for admission: I have assessed the risk for this patient, Ira Irizarry Dariel, and determined that she would benefit from observation care. Evaluation Laboratory results: Laboratory Tests 04/26/20 13:25 Urine Color Straw Urine Appearance Clear Urine pH 7.0 Ur Specific [place] 1.011 Urine Protein Negative Urine Glucose (UA) Negative Urine Ketones Negative Ur Blood (Man) Negative Urine Nitrate Negative Urine Bilirubin Negative Urine Urobilinogen Negative Leukocyte Esterase Rfl 3+ H Urine RBC 0-2 Urine WBC 0-3 Ur Squamous Epith Cells Many H Urine Bacteria Trace
== END 2020-04-26 16:25 | disposition home or self-care (01) ==
PROVIDERS: Admitting Provider Obstetrics & Gynecology Gynecology; Visit Provider Obstetrics & Gynecology Gynecology
DX: O47.02 False labor before 37 completed weeks of gestation, second trimester (principal); O21.2 Late vomiting of pregnancy; Z3A.20 20 weeks gestation of pregnancy
CPT/HCPCS: 81001; 96361; 96374; A9270; G0378; G0379; J2405; J7121

== ENCOUNTER 2020-04-27 16:05 | Observation (INO) | payer MEDICAID, SELFPAY ==
[2020-04-27 16:30] VITALS: BMI 18.5
[2020-04-27 17:00] VITALS: TEMP 36.4
[2020-04-27] MEDS: metroNIDAZOLE 250 MG TABLET 500 MG PO (18:27)
[2020-04-27] MEDS: INDOMETHACIN 25 MG CAPSULE 50 MG PO (19:09)
--- NOTE | 2020-05-21 09:24 | PM.OBTRLD ---
OB - Triage/Final Diagnosis Visit Information Comments/Additional reasons for admission: I have assessed the risk for this patient, Ira Vieira, and determined that she would benefit from observation care. Final Diagnosis (1) contractions: Code(s): O47.9 - False labor, unspecified Status: Acute (2) Bacterial vaginosis in : Code(s): O23.599 - Infection of other part of genital tract in , unspecified trimester; B96.89 - Other specified bacterial agents as the cause of diseases classified elsewhere Status: Acute
== END 2020-04-27 20:40 | disposition home or self-care (01) ==
PROVIDERS: Admitting Provider Obstetrics & Gynecology Gynecology; Visit Provider Obstetrics & Gynecology
DX: O47.02 False labor before 37 completed weeks of gestation, second trimester (principal); O23.592 Infection of other part of genital tract in pregnancy, second trimester; B96.89 Other specified bacterial agents as the cause of diseases classified elsewhere; Z3A.20 20 weeks gestation of pregnancy
CPT/HCPCS: A9270; G0378; G0379

== ENCOUNTER 2020-05-31 13:23 | Emergency (ER) | payer OTHER, SELFPAY ==
--- NOTE | ~2020-05-31 | XR_ITS ---
XR chest 1V portable DATE: 05/31/2020 16:21 INDICATION: Cough, shortness of breath, nausea for one week TECHNIQUE: Portable AP chest on 05/31/2020 COMPARISON: 01/22/2020 CT pulmonary scan FINDINGS: Normal heart size. No hilar or mediastinal enlargement. No pulmonary infiltrate or consolid ation, pleural effusion or pulmonary vascular congestion or pneumothorax. IMPRESSION: No active cardiopulmonary disease Reviewed, dictated and finalized at location A.
[2020-05-31 13:34] VITALS: BP 111/62; PULSE 93; RESP 16; TEMP 36.6; O2SAT 100
[2020-05-31 13:49] LABS: Basophils Absolute Auto 0.1 K/mm3 (0.0-0.1); Basophils Percent Auto 0.4 % (0.2-1.2); Eosinophils Absolute Auto 0.1 K/mm3 (0-0.3); Hematocrit 32.6 % (37.0-47.0); Hemoglobin 11.4 g/dL (12.0-15.0); Immature Granulocyte Absolute 0.05 K/mm3 (0.00-0.031); Immature Granulocyte Percent A 0.4 % (0-0.5); Lymphocytes Absolute Auto 1.34 K/mm3 (0.9-3.2); Lymphocytes Percent Auto 11.9 % (18.3-44.2); Mean Corpuscular Hemoglobin 34.1 pg (26-34); Mean Corpuscular Volume 97.6 fl (80-100); Monocytes Absolute Auto 0.5 K/mm3 (0.1-0.6); Monocytes Percent Auto 4.8 % (2.6-8.5); Neutrophils Absolute Auto 9.2 K/mm3 (1.3-6.7); Neutrophils Percent Auto 81.5 % (45.5-73.1); Platelet Count Result 234 k/mm3 (150-375); Red Blood Count 3.34 M/mm3 (4.2-5.4); Red Cell Distribution Width 12.6 % (11.5-14.5); White Blood Count 11.3 K/mm3 (4.5-10.0)
[2020-05-31 14:03] LABS: Alanine Aminotransferase 14 U/L (4-35); Albumin Level 3.7 g/dL (3.5-5.1); Alkaline Phosphatase 131 U/L (38-126); Anion Gap 5 mmol/L (8-16); Aspartate Amino Transferase 21 U/L (14-36); Bilirubin,Total 0.3 mg/dL (0.2-1.3); Blood Urea Nitrogen 8 mg/dL (7-17); Calcium 8.7 mg/dL (8.4-10.2); Carbon Dioxide 24 mmol/L (22-30); Chloride 108 mmol/L (98-107); Estimated CRCL calculation 107 ml/min; Estimated Glomerular Filt Rate > 60; Glucose 89 mg/dL (65-105); Lipase 106 U/L (23-300); Potassium 3.6 mmol/L (3.4-5.0); Sodium 137 mmol/L (137-145)
[2020-05-31 14:24] VITALS: BP 116/65; BP 120/73; PULSE 75; PULSE 80
[2020-05-31 14:26] VITALS: BP 130/69; PULSE 97
[2020-05-31] MEDS: LACTATED RINGERS 1,000 ML 999 ML IV CONT (14:45)
--- NOTE | 2020-05-31 14:54 | ED.NAVMDI ---
HPI - Nausea/Vomiting/Diarrhea General Chief complaint: Nausea/Vomiting/Diarrhea Stated complaint: n/v, 24 weeks Time Seen by Provider: 05/31/20 14:08 Source: patient Mode of arrival: ambulatory Limitations: no limitations History of Present Illness HPI Narrative: This is a 20 year old female approximately 24 GA who presents for evaluation of viral symptoms. She states she has not felt well for 1.5 weeks. She complains of sore throat, runny nose, congestion, cough, nausea, vomiting and diarrhea. She reports lower abdominal cramping when she has an episode of vomiting. She was told that her contractions were normal . She denies fever or chills. She has been taking Zofran without relief. She states she has been unable to keep anything down by mouth. She reports her symptoms started after her son had similar symptoms. He tested negative for covid and flu. She reports she tested negative for covid. Related Data Home Medications Medication Instructions Recorded Confirmed Daily 1 pkg PO DAILY 01/22/20 04/26/20 gktpyfwosp-lrplivcpexjoc-jjdh 1 cap PO Q4-6H PRN 02/10/20 04/26/20 [Fioricet] sertraline [Zoloft] 50 mg PO HS 02/10/20 04/26/20 hydroxyzine HCl 25 mg PO TID PRN 04/26/20 04/26/20 Allergies Allergy/AdvReac Type Severity Reaction Status Date / Time ketorolac [From Toradol] Allergy Mild Itching Verified 02/14/20 20:59 Review of Systems Review of Systems: All systems reviewed & are unremarkable except as noted in HPI and below Constitutional: Constitutional: Denies chills and Denies fever(s) ENT: Reports sore throat Cardiovascular: Cardiovascular: Denies chest pain Respiratory: Respiratory: Reports cough and Reports dyspnea Gastrointestinal: Gastrointestinal: Reports abdominal pain, Reports diarrhea, Reports nausea and Reports vomiting PMFSH Past Medical History Medical History (Updated 06/01/20 @ 00:00 by Background Daembernadette) Bacterial vaginosis in Nephrolithiasis contractions Pyelonephritis Recurrent urinary tract infection Surgical History Surgical History No pertinent past surgical history Family History Family History (Updated 12/26/10 @ 15:21 by DOCTOR UNKNOWN) Other Hypertension Social History Social History Smoking status: Former smoker Alcohol intake: current Substance use: former Substance use type: marijuana Gender identity (if verbalized by the patient): Female Exam Const: General: alert and ill appearing Orientation/consciousness: patient oriented x3 HENMT: Ears: TM's normal bilaterally Mouth: Yes moist mucous membranes Throat: uvula midline and posterior oropharynx abnormal erythema Eyes: Pupils: Equal, round and reactive pupils present EOM: EOMs intact bilaterally Chest: Chest palpation & inspection: normal inspection of the chest Resp: Effort & Inspection: normal respiratory effort and no retractions Auscultation: clear to auscultation bilaterally Cardio: Rate: regular rate Rhythm: regular rhythm Heart sounds: no murmurs GI: GI Palp: Yes Soft to palpation and No Guarding due to palpation present (GI) Auscultation: normal bowel sounds Other: gravid Skin: General skin exam: normal color Rashes: no rashes Neuro: General: patient oriented x3, moves all extremities and CN's II-XI intact bilaterally Course Reevaluation(s) Reevaluation #1: I Discussed with patient discharge plan to treat with macrobid as discussed with Dr. Baker. She denies any other questions or concerns. She declines prescription of phenergan Date: 05/31/20 Time: 18:03 Consultations Consultation #1: I discussed case with Dr. Baker. She is aware of patient. She is okay with discharge with macrobid. Patient has good movementn Date: 05/31/20 Time: 17:19 Vital Signs Vital signs: Vital Signs
[2020-05-31 14:56] LABS: Add Urine Microscopic? YES; Amorphous Sediment Urine Few; Appearance Urine Cloudy (Clear); Bacteria Urine Trace /hpf; Bilirubin Urine Negative (Negative); Blood Urine Negative (Negative); Color Urine Amber (Yellow); Glucose Urine UA Negative (Negative); Ketones Urine 2+ mg/dL (Negative); Leukocyte Esterase Ur 3+ LEU/UL (Negative); Mucus Urine Heavy /lpf; Nitrate Urine Negative (Negative); Protein Urine 2+ mg/dL (Negative); Squamous Epithelial Cell Urine Many /hpf (Few); WBC Urine 16-20 /hpf
[2020-05-31] MEDS: PROMETHAZINE HCL 25 MG/ML AMPUL 12.5 MG IV PUSH (15:01)
[2020-05-31 23:58] LABS: SARS-CoV-2 RNA PCR Negative
== END 2020-05-31 18:24 | disposition home or self-care (01) ==
PROVIDERS: Emergency Medicine; Emergency Provider General Practice
DX: O99.512 Diseases of the respiratory system complicating pregnancy, second trimester (principal); J06.9 Acute upper respiratory infection, unspecified; O21.2 Late vomiting of pregnancy; O99.282 Endocrine, nutritional and metabolic diseases complicating pregnancy, second trimester; E86.0 Dehydration; Z20.822 Contact with and (suspected) exposure to COVID-19; Z3A.24 24 weeks gestation of pregnancy; Z87.442 Personal history of urinary calculi; Z87.440 Personal history of urinary (tract) infections; Z87.891 Personal history of nicotine dependence
CPT/HCPCS: 36415; 71045; 80053; 81001; 83690; 85025; 87077; 87081; 87086; 87088; 87186; 87804; 87880; 96361; 96374; 96375; 99284; C9803; J0131; J2550; J7120; U0003; U0005

== ENCOUNTER 2020-06-26 20:36 | Observation (INO) | payer OTHER, SELFPAY ==
--- NOTE | 2020-06-26 21:00 | PC.NURSE ---
2100 SEE OBIX DOCUMENTATION
[2020-06-26] MEDS: TERBUTALINE SULFATE 1 MG/ML VIAL 0.25 MG SUB-Q (21:07)
[2020-06-26] MEDS: NIFEdipine 10 MG CAPSULE PO (21:23)
[2020-06-26 21:59] LABS: Fetal Fibronectin Negative
[2020-06-26 22:00] VITALS: BP 110/55; PULSE 75
--- NOTE | 2020-06-27 00:19 | OBADM ---
This patient, Ira Vieira, admitted to the OB room OB Post 117 for observation. Patient/family oriented to hospital policies and general routines including ID bracelet, bed and alarms, visiting hours, pain management, procedures, bathroom and other care routines, personal items, smoking policy, room service/diet, and visiting hours. Patient/Family are encouraged to report perceived risks to care and to ask questions if they do not understand what they are told or what they should do.
--- NOTE | 2020-07-25 07:52 | PM.OBTRLD ---
OB - Triage/Final Diagnosis Visit Information Comments/Additional reasons for admission: I have assessed the risk for this patient, Ira Vieira, and determined that she would benefit from observation care. Evaluation Laboratory results: Laboratory Tests 06/26/20 20:02 Fibronectin Negative Final Diagnosis (1) contractions: Code(s): O47.9 - False labor, unspecified Status: Acute
== END 2020-06-26 23:08 | disposition home or self-care (01) ==
PROVIDERS: Admitting Provider Obstetrics & Gynecology; Visit Provider Obstetrics & Gynecology
DX: O47.9 False labor, unspecified (principal); Z3A.00 Weeks of gestation of pregnancy not specified
CPT/HCPCS: 82731; 84112; 96372; A9270; G0378; G0379; J3105

== ENCOUNTER 2020-07-02 22:00 | Observation (INO) | payer OTHER, SELFPAY ==
[2020-07-02 22:11] VITALS: BP 124/64; PULSE 89
[2020-07-02 22:30] VITALS: BMI 20.9
[2020-07-02] MEDS: TERBUTALINE SULFATE 1 MG/ML VIAL 0.25 MG SUB-Q (22:58)
[2020-07-02] MEDS: NIFEdipine 10 MG CAPSULE 20 MG PO (23:34)
[2020-07-02 23:47] LABS: Fetal Fibronectin Positive
--- NOTE | 2020-08-01 08:40 | PM.OBTRLD ---
OB - Triage/Final Diagnosis Visit Information Reason for evaluation: threatened labor Comments/Additional reasons for admission: I have assessed the risk for this patient, Ira Irizarry Dariel, and determined that she would benefit from observation care. Evaluation Laboratory results: Laboratory Tests 07/02/20 23:02 Fibronectin Positive
--- NOTE | 2020-08-02 11:14 | PM.OBTRLD ---
OB - Triage/Final Diagnosis Visit Information Reason for evaluation: other (back pain and contractions) Comments/Additional reasons for admission: I have assessed the risk for this patient, Ira Vieira, and determined that she would benefit from observation care. Evaluation Laboratory results: Laboratory Tests 07/02/20 23:02 Fibronectin Positive
== END 2020-07-03 00:13 | disposition home or self-care (01) ==
PROVIDERS: Admitting Provider Obstetrics & Gynecology Gynecology; Visit Provider Obstetrics & Gynecology Gynecology
DX: O47.9 False labor, unspecified (principal); Z3A.00 Weeks of gestation of pregnancy not specified
CPT/HCPCS: 82731; 96372; A9270; G0378; G0379; J3105

== ENCOUNTER 2020-07-04 16:03 | Observation (INO) | payer OTHER, SELFPAY ==
[2020-07-04] VITALS (9 sets, daily range): BP systolic 99–128; BP diastolic 47–71; PULSE 70–100
--- NOTE | 2020-07-04 17:14 | PC.NURSE ---
1656- called, informed that pt came in stating she was leaking fluid enough to saturate her pants and make the seat to her car wet. ROM plus is negative, no ctx noted. Some irritability noted, pt denies feeling any ctx. Pt is due for procardia 20mg at 1800. Pt states when she smelled the fluid prior to arriving it was the worst smell I've ever smelt . Orders received to send UA. Discharge pt home if UA is clear.
--- NOTE | 2020-07-04 17:16 | OBADM ---
This patient, Ira Vieira, admitted to the OB room OB Post 116 for observation. Patient/family oriented to hospital policies and general routines including ID bracelet, bed and alarms, visiting hours, pain management, procedures, bathroom and other care routines, personal items, smoking policy, room service/diet, and visiting hours. Patient/Family are encouraged to report perceived risks to care and to ask questions if they do not understand what they are told or what they should do.
[2020-07-04 17:34] LABS: Add Urine Microscopic? YES; Appearance Urine Cloudy (Clear); Bacteria Urine Trace /hpf; Bilirubin Urine Negative (Negative); Blood Urine Negative (Negative); Color Urine Yellow (Yellow); Glucose Urine UA Negative (Negative); Ketones Urine Negative (Negative); Leukocyte Esterase Ur 3+ LEU/UL (Negative); Nitrate Urine Negative (Negative); Protein Urine Negative (Negative); Specific Grav Ur 1.006 (1.001-1.035); Squamous Epithelial Cell Urine Rare /hpf (Few); Urobilinogen Urine Negative mg/dL (<2.0); WBC Urine 21-30 /hpf
--- NOTE | 2020-07-11 09:58 | PM.OBTRLD ---
OB - Triage/Final Diagnosis Visit Information Reason for evaluation: other (contractions) Comments/Additional reasons for admission: I have assessed the risk for this patient, Ira Vieira, and determined that she would benefit from observation care. Evaluation Laboratory results: Laboratory Tests 07/04/20 17:08 Urine Color Yellow Urine Appearance Cloudy H Urine pH 7.0 Ur Specific [place] 1.006 Urine Protein Negative Urine Glucose (UA) Negative Urine Ketones Negative Ur Blood (Man) Negative Urine Nitrate Negative Urine Bilirubin Negative Urine Urobilinogen Negative Leukocyte Esterase Rfl 3+ H Urine RBC 6-10 H Urine WBC 21-30 H Ur Squamous Epith Cells Rare Urine Bacteria Trace
== END 2020-07-04 18:47 | disposition home or self-care (01) ==
PROVIDERS: Admitting Provider Obstetrics & Gynecology Gynecology; Visit Provider Obstetrics & Gynecology Gynecology
DX: O60.00 Preterm labor without delivery, unspecified trimester (principal); Z3A.00 Weeks of gestation of pregnancy not specified
CPT/HCPCS: 81001; 87077; 87086; 87088; 87186; G0378; G0379

== ENCOUNTER 2020-08-21 15:10 | Observation (INO) | payer OTHER, SELFPAY ==
[2020-08-21 16:45] LABS: Add Urine Microscopic? YES; Appearance Urine Cloudy (Clear); Bilirubin Urine Negative (Negative); Blood Urine 1+ (Negative); Budding Yeast Urine Present /hpf; Color Urine Yellow (Yellow); Glucose Urine UA Negative (Negative); Ketones Urine Negative (Negative); Leukocyte Esterase Ur 3+ LEU/UL (Negative); Mucus Urine Rare /lpf; Nitrate Urine Positive (Negative); Protein Urine Negative (Negative); Specific Grav Ur 1.015 (1.001-1.035); Squamous Epithelial Cell Urine Rare /hpf (Few); Urobilinogen Urine Negative mg/dL (<2.0); WBC Urine >75 /hpf
[2020-08-21 17:01] VITALS: BP 120/65; PULSE 81
--- NOTE | 2020-08-21 17:07 | PM.OBTRLD ---
OB - Triage/Final Diagnosis Visit Information Comments/Additional reasons for admission: I have assessed the risk for this patient, Ira Vieira, and determined that she would benefit from observation care. Po hydrate and augmentin 500 mg bid x 7 days Evaluation Laboratory results: Laboratory Tests 08/21/20 16:32 Urine Color Yellow Urine Appearance Cloudy H Urine pH 7.0 Ur Specific [place] 1.015 Urine Protein Negative Urine Glucose (UA) Negative Urine Ketones Negative Ur Blood (Man) 1+ H Urine Nitrate Positive H Urine Bilirubin Negative Urine Urobilinogen Negative Leukocyte Esterase Rfl 3+ H Urine RBC 3-5 H Urine WBC >75 H Ur Squamous Epith Cells Rare Urine Mucus Rare Urine Yeast (Budding) Present H Vital signs: Vital Signs - 24 hr 08/21/20 17:01 Pulse Rate 81 Blood Pressure 120/65 Final Diagnosis (1) contractions: Code(s): O47.9 - False labor, unspecified Status: Acute (2) UTI (urinary tract infection): Code(s): N39.0 - Urinary tract infection, site not specified Status: Acute
[2020-08-21] MEDS: AMOXICILLIN/CLAVULANATE K 500-125 MG TAB 1 TABLET PO (17:42)
[2020-08-21 18:15] VITALS: BP 113/64; PULSE 74
[2020-08-21 19:20] VITALS: BP 124/66; PULSE 73
[2020-08-21] MEDS: MORPHINE SULFATE (*CRX) 2 MG/ML INJ 4 MG IM (19:26)
[2020-08-21] MEDS: MORPHINE SULFATE (*CRX) 2 MG/ML INJ 4 MG IV PUSH (19:27)
[2020-08-21] MEDS: ceFAZolin 2 GM/D5W 50 ML 2 GM/50 ML BAG IVPB (22:09)
[2020-08-21] MEDS: LACTATED RINGERS 500 ML 999 ML IV CONT (22:10)
[2020-08-21] MEDS: fentaNYL CITRATE INJ (*CRX) 100 MCG/2 ML VIAL 50 MCG IV PUSH (22:11)
[2020-08-21 22:18] VITALS: BP 103/69; PULSE 80
[2020-08-22 00:49] VITALS: TEMP 36.6
[2020-08-22 00:50] VITALS: BP 111/53; PULSE 64
[2020-08-22] MEDS: fentaNYL CITRATE INJ (*CRX) 100 MCG/2 ML VIAL 50 MCG IV PUSH ×3 (00:51→05:35)
[2020-08-22] MEDS: LACTATED RINGERS 1,000 ML 125 ML IV CONT (03:14)
[2020-08-22 07:37] VITALS: TEMP 36.2
[2020-08-22 07:38] VITALS: BP 113/68; PULSE 70
[2020-08-22] MEDS: HYDROcodone/acetaminophen (*CRX) 5-325 MG TABLET 1 TAB PO (07:47)
--- NOTE | 2020-08-22 09:43 | PM.OBTRLD ---
OB - Triage/Final Diagnosis Visit Information Comments/Additional reasons for admission: I have assessed the risk for this patient, Ira Vieira, and determined that she would benefit from observation care. Patient feeling better this am. Required fentynyl for pain through night now did ok with norco. Will dc home on Augmentin and [place] (#10) Evaluation Laboratory results: Laboratory Tests 08/21/20 16:32 Urine Color Yellow Urine Appearance Cloudy H Urine pH 7.0 Ur Specific [place] 1.015 Urine Protein Negative Urine Glucose (UA) Negative Urine Ketones Negative Ur Blood (Man) 1+ H Urine Nitrate Positive H Urine Bilirubin Negative Urine Urobilinogen Negative Leukocyte Esterase Rfl 3+ H Urine RBC 3-5 H Urine WBC >75 H Ur Squamous Epith Cells Rare Urine Mucus Rare Urine Yeast (Budding) Present H Vital signs: Vital Signs - 24 hr 08/21/20 17:01 08/21/20 18:15 08/21/20 19:20 Temperature Pulse Rate 81 74 73 Blood Pressure 120/65 113/64 124/66 08/21/20 22:18 08/22/20 00:49 08/22/20 00:50 Temperature 97.9 F Pulse Rate 80 64 Blood Pressure 103/69 111/53 L 08/22/20 07:37 08/22/20 07:38 Temperature 97.1 F L Pulse Rate 70 Blood Pressure 113/68 Final Diagnosis (1) UTI (urinary tract infection): Code(s): N39.0 - Urinary tract infection, site not specified Status: Acute
--- NOTE | 2020-09-05 11:03 | P.PNOB_ITS ---
OB - Triage/Final Diagnosis Visit Information Comments/Additional reasons for admission: I have assessed the risk for this patient, Ira Vieira, and determined that she would benefit from observation care. Evaluation Laboratory results: Laboratory Tests 08/21/20 16:32 Urine Color Yellow Urine Appearance Cloudy H Urine pH 7.0 Ur Specific [place] 1.015 Urine Protein Negative Urine Glucose (UA) Negative Urine Ketones Negative Ur Blood (Man) 1+ H Urine Nitrate Positive H Urine Bilirubin Negative Urine Urobilinogen Negative Leukocyte Esterase Rfl 3+ H Urine RBC 3-5 H Urine WBC >75 H Ur Squamous Epith Cells Rare Urine Mucus Rare Urine Yeast (Budding) Present H Final Diagnosis (1) UTI (urinary tract infection): Code(s): N39.0 - Urinary tract infection, site not specified Status: Acute
== END 2020-08-22 10:00 | disposition home or self-care (01) ==
PROVIDERS: Admitting Provider Obstetrics & Gynecology; Visit Provider Obstetrics & Gynecology
DX: O47.9 False labor, unspecified (principal); O23.40 Unspecified infection of urinary tract in pregnancy, unspecified trimester; Z3A.00 Weeks of gestation of pregnancy not specified
CPT/HCPCS: 81001; 87077; 87086; 87088; 87186; 96361; 96365; 96372; 96374; 96375; 96376; A9270; G0378; G0379; J0690; J2270; J3010; J7120

== ENCOUNTER 2020-08-23 12:49 | Observation (INO) | payer OTHER, SELFPAY ==
[2020-08-23] VITALS (10 sets, daily range): BP systolic 117–125; BP diastolic 67–77; PULSE 52–75; RESP 18–20; TEMP 36.3–36.6; O2SAT 99–100; BMI 22.0
--- NOTE | ~2020-08-23 | US_ITS ---
US renal BI 08/23/2020 15:48 Procedure: Realtime transabdominal ultrasound of the kidneys and bladder. Indication: Back pain Comparison: No prior studies for comparison. Findings: Renal echotexture is normal bilaterally without hydronephrosis, contour deforming mass or r enal calculus. There is severe right hydronephrosis. The right kidney measures 11.9 cm and left kidne y measures 9.8 cm. Bladder within normal limits. Impression: 1: Severe right hydronephrosis. Reviewed, dictated and finalized at location B. Impression: 1: Severe right hydronephrosis.
--- NOTE | 2020-08-23 12:49 | OBADM ---
This patient, Ira Vieira, admitted to the OB room OB Post 115 for observation. Patient/family oriented to hospital policies and general routines including ID bracelet, bed and alarms, visiting hours, pain management, procedures, bathroom and other care routines, personal items, smoking policy, room service/diet, and visiting hours. Patient/Family are encouraged to report perceived risks to care and to ask questions if they do not understand what they are told or what they should do.
--- NOTE | 2020-08-23 13:13 | PC.NURSE ---
Dr Baker notified of c/o nausea and vomiting and increase in back pain.
[2020-08-23] MEDS: LACTATED RINGERS 1,000 ML 1000 ML IV CONT (13:58)
[2020-08-23] MEDS: ceFAZolin 2 GM/D5W 50 ML 2 GM/50 ML BAG IVPB ×2 (13:59→22:06)
[2020-08-23] MEDS: ONDANSETRON INJ 4 MG/2 ML VIAL IV PUSH ×2 (13:59→21:13)
--- NOTE | 2020-08-23 16:26 | PC.NURSE ---
Consult called to Dr Keller's office.
--- NOTE | 2020-08-23 16:38 | PC.NURSE ---
A brief history of adm c/o given to Dr Tavarez. Order for UA and someone will be by to see patient in the AM.
[2020-08-23] MEDS: HYDROcodone/acetaminophen (*CRX) 5-325 MG TABLET 1 TAB PO ×2 (16:43→19:06)
[2020-08-23 17:39] LABS: Add Urine Microscopic? YES; Amorphous Sediment Urine Few; Appearance Urine Clear (Clear); Bacteria Urine Trace /hpf; Bilirubin Urine Negative (Negative); Blood Urine Negative (Negative); Color Urine Straw (Yellow); Glucose Urine UA Negative (Negative); Ketones Urine Trace mg/dL (Negative); Leukocyte Esterase Ur Trace LEU/UL (Negative); Nitrate Urine Negative (Negative); Protein Urine Negative (Negative); RBC Urine 0-2 /hpf (0-2); Specific Grav Ur 1.002 (1.001-1.035); Squamous Epithelial Cell Urine Occasional /hpf (Few); Urobilinogen Urine Negative mg/dL (<2.0); WBC Urine 0-3 /hpf
--- NOTE | 2020-08-23 18:07 | PC.NURSE ---
Addendum entered by Shabnam Jimenez RN 08/23/20 18:10: Called received at 1605 Original Note: Dr Baker notified of US results, orders for Urology consult.
[2020-08-23] MEDS: MORPHINE SULFATE PCA (*CRX) 30 MG/30 ML SYR IV CONT (21:18)
--- NOTE | 2020-08-23 21:18 | PC.NURSE ---
SENIOR FACILITIES MANAGER settings verified by Kelli Connelly RN
[2020-08-24] VITALS (9 sets, daily range): BP systolic 110–125; BP diastolic 54–77; PULSE 50–82; RESP 16–18; TEMP 36.1–36.5; O2SAT 99–100
[2020-08-24] MEDS: ONDANSETRON INJ 4 MG/2 ML VIAL IV PUSH ×3 (01:04→10:56)
[2020-08-24] MEDS: LACTATED RINGERS 1,000 ML 1000 ML IV CONT ×4 (01:07→22:07)
--- NOTE | 2020-08-24 03:05 | PC.NURSE ---
Pt requesting Morphine LEAD RETAIL SALES ASSOCIATE to be discontinued due to nausea. LEAD RETAIL SALES ASSOCIATE discontinued at this time per pt request.
[2020-08-24] MEDS: ceFAZolin 2 GM/D5W 50 ML 2 GM/50 ML BAG IVPB ×3 (05:45→22:09)
--- NOTE | 2020-08-24 07:49 | WPDOBADMIT ---
Obstetrics - Admit Note Admission Note: record reviewed. No pertinent additions to the history and/or any subsequent changes in the physical findings that are not consistent with the expected course of the were found. Patient 20 y/o at 36 weeks presented to labor and delivery with back pain. Patient was seen on 08/21/20 diagnosed with UTI and labor and admitted for observation. patient received IV fluid and ancef. Patient was discharged on Augmentin and prn [place]. Patient returned with pain. renal ultrasound shows severe hydronephrorosis with concern for kidney stone. Urology consult pending. FWB reassuring. Additions to the history and/or subsequent changes in the physical findings follow. None.
[2020-08-24 08:44] LABS: Hematocrit 30.2 % (37.0-47.0); Hemoglobin 9.9 g/dL (12.0-15.0); Mean Corpuscular HGB Conc 32.8 g/dl (32-36); Mean Corpuscular Hemoglobin 31.8 pg (26-34); Mean Corpuscular Volume 97.1 fl (80-100); Mean Platelet Volume 9.1 fl (7.4-10.4); Platelet Count Result 223 k/mm3 (150-375); Red Blood Count 3.11 M/mm3 (4.2-5.4); Red Cell Distribution Width 12.3 % (11.5-14.5); White Blood Count 6.9 K/mm3 (4.5-10.0)
[2020-08-24 08:57] LABS: Anion Gap 8 mmol/L (8-16); Blood Urea Nitrogen 7 mg/dL (7-17); Calcium 8.5 mg/dL (8.4-10.2); Carbon Dioxide 22 mmol/L (22-30); Chloride 109 mmol/L (98-107); Estimated CRCL calculation 103 ml/min; Estimated Glomerular Filt Rate > 60; Glucose 85 mg/dL (65-105); Potassium 3.7 mmol/L (3.4-5.0); Sodium 139 mmol/L (137-145)
[2020-08-24] MEDS: CYCLOBENZAPRINE HCL 10 MG TABLET PO (09:17)
[2020-08-24] MEDS: PROMETHAZINE HCL 25 MG/ML AMPUL 12.5 MG IV PUSH ×4 (09:28→23:25)
[2020-08-24] MEDS: HYDROcodone/acetaminophen (*CRX) 5-325 MG TABLET 1 TAB PO ×4 (10:00→23:24)
--- NOTE | 2020-08-24 13:16 | WPDURCON ---
Assessment and Plan Assessment and plan (1) Hydronephrosis: Code(s): N13.30 - Unspecified hydronephrosis Status: Acute Assessment and Plan: This is a very pleasant 20-year-old female 37 weeks with right-sided flank pain, renal ultrasound showing right hydronephrosis. The patient's exam is consistent with musculoskeletal pain. -I have recommended the patient try heating pad, stretching, and nonsteroidal anti-inflammatories if okay with OBGYN. -it is possible the patient's hydronephrosis is related to the passing of the stone or due to hydronephrosis from . I would recommend we hold off on intervention at this time unless symptoms worsen, and plan for a CT scan once the patient has delivered to assess for residual hydronephrosis after of her child. Thank you very much, please call with questions and updates Urology Consult Note HPI Date Seen: 08/24/20 Requesting Physician: Margo Baker MD Primary Care Provider: ENGINEERING LEADER PHYSICIAN Consult Narrative Narrative: Ira Vieira is a 20 year old female who presented to the hospital due to abdominal pain. She is 37 weeks . The patient was seen over the weekend and diagnosed with concern for urinary tract infection and treated with antibiotics (urine culture revealed coag-negative Staph), however the patient persists with discomfort. A renal ultrasound was performed that showed hydronephrosis on the right, and a Urology consult called to evaluate the patient. The patient does have history of nephrolithiasis, having passed 1 stone on her own spontaneously. The patient states the pain causes nausea and vomiting. She denies fevers or chills, she denies dysuria. She denies headaches or vision changes. Review of Systems Review of Systems: All systems reviewed & are unremarkable except as noted in HPI and below PMFSH Past Medical History Medical History (Updated 08/24/20 @ 13:20 by Juan Goldberg MD) Bacterial vaginosis in Nephrolithiasis contractions Pyelonephritis Recurrent urinary tract infection UTI (urinary tract infection) Surgical History Surgical History No pertinent past surgical history Family History Family History (Updated 08/17/20 @ 15:34 by Armida Ward RN) Grandparent Hypertension LCC (liver cell carcinoma) Mother Lung cancer Social History Social History Smoking status: Former smoker Alcohol intake: current Substance use: never Substance use type: marijuana Gender identity (if verbalized by the patient): Female Spiritual care concerns: No Meds Home Medications and Allergies Home Medications Medication Instructions Recorded Confirmed Type sertraline [Zoloft] 50 mg PO HS 02/10/20 08/23/20 History ergocalciferol (vitamin D2) 1,250 mcg PO WEEKLY 08/17/20 08/23/20 History [Vitamin D2] ferrous sulfate 142 mg PO DAILY 08/17/20 08/23/20 History prenat.vits,wendy,qpk-srfx-wjpjv 1 tablet PO DAILY 08/17/20 08/23/20 History amoxicillin-pot clavulanate 1 tablet PO Q12H #14 tablet 08/21/20 08/23/20 Rx [Augmentin] hydrocodone-acetaminophen 1 tablet PO Q4H PRN #10 tablet 08/22/20 08/23/20 Rx Allergies Allergy/AdvReac Type Severity Reaction Status Date / Time ketorolac [From Toradol] Allergy Mild Itching Verified 08/17/20 15:30 Vital Signs Vital Signs - 24 hr 08/23/20 13:30 08/23/20 16:00 08/23/20 18:50 Temperature 36.6 C 36.3 C L Pulse Rate 74 Respiratory Rate Blood Pressure Blood Pressure [Right Arm] 117/77 Pulse Oximetry 08/23/20 18:54 08/23/20 21:18 08/23/20 22:11 Temperature Pulse Rate 66 53 L Respiratory Rate 20 Blood Pressure 119/69 125/67 Blood Pressure [Right Arm] Pulse Oximetry 100 08/23/20 22:12 08/23/20 22:16 08/24/20 01:03 Temperature 36.1 C L Pulse Rate Respiratory
[2020-08-25] MEDS: ceFAZolin 2 GM/D5W 50 ML 2 GM/50 ML BAG IVPB ×2 (06:15→14:28)
[2020-08-25] MEDS: PROMETHAZINE HCL 25 MG/ML AMPUL 12.5 MG IV PUSH ×2 (06:35→10:55)
[2020-08-25] MEDS: HYDROcodone/acetaminophen (*CRX) 5-325 MG TABLET 1 TAB PO ×3 (06:35→15:04)
[2020-08-25 06:40] VITALS: PULSE 63; O2SAT 99
[2020-08-25 06:41] VITALS: BP 127/70; PULSE 51; RESP 16; TEMP 36.6
--- NOTE | 2020-08-25 07:37 | PM.OBPNVD ---
OB - PN: Subj Subjective Date/time seen: 08/25/20 07:37 No help with Flexeril. Woke to pain of 8/10 and pain not under 3/10 with meds. Nausea persists but controlled with phenergan. Good FM OB - PN: Obj Data Labs CBC & Chem 7: 08/24/20 08:30 08/24/20 08:30 Labs: Laboratory Results - last 24 hr 08/24/20 08/24/20 08:30 08:30 WBC 6.9 RBC 3.11 L Hgb 9.9 L Hct 30.2 L MCV 97.1 MCH 31.8 MCHC 32.8 RDW 12.3 Plt Count 223 MPV 9.1 Sodium 139 Potassium 3.7 Chloride 109 H Carbon Dioxide 22 Anion Gap 8 BUN 7 Creatinine 0.70 Estim Creat Clear Calc 103 Estimated GFR > 60 Glucose 85 Calcium 8.5 OB - PN A/P Assessment and Plan (1) 37 weeks gestation of : Code(s): Z3A.37 - 37 weeks gestation of Status: Acute Assessment and Plan: FHTs reactive (2) Hydronephrosis: Code(s): N13.30 - Unspecified hydronephrosis Status: Acute Assessment and Plan: still in significant pain will wait for urology to reevaluate this am possible DC home Time Spent With Patient Time: Total time spent is greater than 50% in coordination of care (as documented) at patient's floor/unit and/or counseling patient: Exam Const: General: uncomfortable GI: GI Palp: No abdominal tenderness and Yes Soft to palpation Other: FHT's reactive Back/Spine/Pelvis: Back: no CVA tenderness and back tenderness (right lower)
[2020-08-25 14:24] VITALS: BP 125/79; PULSE 72; PULSE 73; O2SAT 100
[2020-08-25] MEDS: LACTATED RINGERS 1,000 ML 1000 ML IV CONT (14:28)
[2020-08-25 14:37] VITALS: RESP 16; TEMP 36.6
--- NOTE | 2020-08-25 17:19 | WPDUROPN2 ---
Progress Note: A&P Assessment and Plan (1) Hydronephrosis: Code(s): N13.30 - Unspecified hydronephrosis Status: Acute Assessment and Plan: 20-year-old female 37 weeks gestation with right hydronephrosis. Patient's pain has improved with oral pain medication and muscle relaxants. - I discussed options with the patient including discharge home, continue observation in the hospital, or placement of a right ureteral stent. As the patient's symptoms have improved, Seems appropriate to hold off on surgical intervention at this time. The patient would like to go home see her family. She will return to [facility] if symptoms worsen. - as long as no intervention prior to delivery, I have recommended that the patient undergo CT scan imaging to assess for residual hydronephrosis and presence of nephrolithiasis. Subjective Subjective Date/Time Seen: 08/25/20 17:19 The patient feels better this afternoon. She denies any nausea or vomiting. Her pain is improved with oral pain medication Exam Narrative: Exam Narrative: exam performed with patient's nurse acting as director of patient safety. The patient is awake and alert in no acute distress. She is lethargic. She has unlabored breathing. She has a gravid abdomen. She has no CVA tenderness at this time. She has no point tenderness at this time. Objective Data Vital Signs Vital Signs: Vital Signs - 24 hr 08/24/20 19:41 08/24/20 19:42 08/24/20 22:17 Temperature Pulse Rate 71 66 Respiratory Rate Blood Pressure 114/67 118/73 Pulse Oximetry 99 08/25/20 06:40 08/25/20 06:41 08/25/20 14:24 Temperature 36.6 C Pulse Rate 51 L 73 Respiratory Rate 16 Blood Pressure 127/70 125/79 Pulse Oximetry 99 100 08/25/20 14:37 Temperature 36.6 C Pulse Rate Respiratory Rate 16 Blood Pressure Pulse Oximetry Intake/Output Intake/Output: Intake & Output 08/22/20 08/23/20 08/24/20 08/25/20 23:59 23:59 23:59 23:59 Intake Total 1810 5124.8 700 Output Total 1500 2300 2300 Balance 310 2824.8 -1600 Meds/Results Medications: Active Medications Generic Name Dose Route Start Last Admin Trade Name Freq PRN Reason Stop Dose Admin Hydrocodone Bitart/Acetaminophen 1 tab 08/23/20 16:15 08/25/20 15:04 Hydrocodone/Acetaminophen (*Crx) 5-325 Mg Tablet PO 1 tab Q4H PRN Administration Pain Rated 4-6 Lactated Ringer's 1,000 mls @ 175 mls/hr 08/23/20 13:20 08/25/20 14:28 Lr - Lactated Ringers Iv IV CONT 1,000 mls/hr .Q5H43M DANG Administration Cefazolin Sodium 2 gm in 50 mls @ 100 mls/hr 08/23/20 14:00 08/25/20 14:58 Ancef 2 Gm/D5w 50 Ml IVPB Infused Q8H DANG Infusion Ondansetron HCl 4 mg 08/23/20 13:19 08/24/20 10:56 Ondansetron Inj 4 Mg/2 Ml Vial IV PUSH 4 mg Q4H PRN Administration Nausea And Vomiting Promethazine HCl 12.5 mg 08/24/20 07:58 08/25/20 10:55 Promethazine Hcl 25 Mg/Ml Ampul IV PUSH 12.5 mg Q4H PRN Administration Nausea And Vomiting Radiology Results: ITS Impressions Renal Ultrasound 08/23/20 15:52 Impression: 1: Severe right hydronephrosis.
--- NOTE | 2020-08-25 17:42 | PC.NURSE ---
4279- SPoke with Dr. Ewing, informed of Dr. Goldberg visit. Per him, patient may be discharged to home. Patient stating she wants to go home, nausea is gone and pain is controllled with Freedom. Orders to discharge to home, scripts have been sent to pharmacy. Patient to follow up next week with Dr. Baker.
--- NOTE | 2020-09-05 11:07 | P.PNOB_ITS ---
OB - Triage/Final Diagnosis Visit Information Comments/Additional reasons for admission: I have assessed the risk for this patient, Ira Vieira, and determined that she would benefit from observation care. Evaluation Laboratory results: Laboratory Tests 08/23/20 08/24/20 08/24/20 17:25 08:30 08:30 WBC 6.9 RBC 3.11 L Hgb 9.9 L Hct 30.2 L MCV 97.1 MCH 31.8 MCHC 32.8 RDW 12.3 Plt Count 223 MPV 9.1 Sodium 139 Potassium 3.7 Chloride 109 H Carbon Dioxide 22 Anion Gap 8 BUN 7 Creatinine 0.70 Estim Creat Clear Calc 103 Estimated GFR > 60 Glucose 85 Calcium 8.5 Urine Color Straw Urine Appearance Clear Urine pH 7.0 Ur Specific [place] 1.002 Urine Protein Negative Urine Glucose (UA) Negative Urine Ketones Trace Ur Blood (Man) Negative Urine Nitrate Negative Urine Bilirubin Negative Urine Urobilinogen Negative Leukocyte Esterase Rfl Trace H Urine RBC 0-2 Urine WBC 0-3 Ur Squamous Epith Cells Occasional Amorphous Sediment Few H Urine Bacteria Trace Final Diagnosis (1) Pyelonephritis: Code(s): N12 - Tubulo-interstitial nephritis, not specified as acute or chronic Status: Acute (2) contractions: Code(s): O47.9 - False labor, unspecified Status: Acute
== END 2020-08-25 17:46 | disposition home or self-care (01) ==
PROVIDERS: Urology; Admitting Provider Obstetrics & Gynecology Gynecology; Visit Provider Obstetrics & Gynecology
DX: O26.833 Pregnancy related renal disease, third trimester (principal); N13.30 Unspecified hydronephrosis; O23.43 Unspecified infection of urinary tract in pregnancy, third trimester; Z3A.37 37 weeks gestation of pregnancy
CPT/HCPCS: 36415; 59025; 76775; 80048; 81001; 85027; 96361; 96365; 96366; 96367; 96375; 96376; A9270; G0378; G0379; J0690; J2270; J2405; J2550; J7120

== ENCOUNTER 2020-08-26 10:59 | Observation (INO) | payer OTHER, SELFPAY ==
[2020-08-26] VITALS (148 sets, daily range): BP systolic 113–159; BP diastolic 59–92; PULSE 54–98; RESP 18–28; TEMP 36.3–37.2; O2SAT 86–100; BMI 22.1
--- NOTE | ~2020-08-26 | XR_ITS ---
XR chest 2V 08/26/2020 12:15 Indication: Shortness of breath. 37 weeks . Procedure: PA and lateral views of the chest Comparison: 08/31/2020 Findings: Bibasilar airspace disease. Heart size normal. No significant pleural effusion or pneumotho rax. No acute osseous abnormality. Impression: 1: Bibasilar airspace disease, compatible with pneumonia. Reviewed, dictated and finalized at location B. Impression: 1: Bibasilar airspace disease, compatible with pneumonia.
--- NOTE | 2020-08-26 11:25 | PC.NURSE ---
Dr. Baker informed pt sitting on side of bed and short of breath. Pt woke this morning around 0930 feeling short of breath and coughing. Resp 28-30. O2 sats 99-100 %. Breath sounds diminished bilaterally, coarse in bases- worse on right side. Inspiratory wheeze in right upper lobe noted. Pt having upper chest pain she rates a 7 out of 10 with deep breaths and coughing. Bilateral flank/back pain she rates as a 7 out of 10. Nauseated. Orders received.
--- NOTE | 2020-08-26 11:30 | OBADM ---
This patient, Ira Vieira, admitted to the OB room 115at 1059 for observation. Patient/family oriented to hospital policies and general routines including ID bracelet, bed and alarms, visiting hours, pain management, procedures, bathroom and other care routines, personal items, smoking policy, room service/diet, and visiting hours. Patient/Family are encouraged to report perceived risks to care and to ask questions if they do not understand what they are told or what they should do.
--- NOTE | 2020-08-26 11:30 | PC.NURSE ---
See OBIX for additional documentation.
[2020-08-26] MEDS: ONDANSETRON INJ 4 MG/2 ML VIAL IV PUSH (12:01)
[2020-08-26] MEDS: MORPHINE SULFATE (*CRX) 2 MG/ML INJ IV PUSH ×2 (12:04→16:30)
[2020-08-26 12:06] LABS: Basophils Absolute Auto 0.1 K/mm3 (0.0-0.1); Basophils Percent Auto 0.5 % (0.2-1.2); Eosinophils Absolute Auto 0.1 K/mm3 (0-0.3); Eosinophils Percent Auto 0.8 % (0-4.4); Hematocrit 32.8 % (37.0-47.0); Hemoglobin 10.9 g/dL (12.0-15.0); Immature Granulocyte Absolute 0.07 K/mm3 (0.00-0.031); Immature Granulocyte Percent A 0.6 % (0-0.5); Lymphocytes Absolute Auto 1.51 K/mm3 (0.9-3.2); Lymphocytes Percent Auto 13.7 % (18.3-44.2); Mean Corpuscular HGB Conc 33.2 g/dl (32-36); Mean Corpuscular Hemoglobin 31.6 pg (26-34); Mean Corpuscular Volume 95.1 fl (80-100); Mean Platelet Volume 9.5 fl (7.4-10.4); Monocytes Absolute Auto 0.6 K/mm3 (0.1-0.6); Neutrophils Absolute Auto 8.7 K/mm3 (1.3-6.7); Neutrophils Percent Auto 79.4 % (45.5-73.1); Platelet Count Result 223 k/mm3 (150-375); Red Blood Count 3.45 M/mm3 (4.2-5.4); Red Cell Distribution Width 12.2 % (11.5-14.5)
[2020-08-26 12:19] LABS: Alanine Aminotransferase 8 U/L (4-35); Albumin Level 3.3 g/dL (3.5-5.1); Alkaline Phosphatase 221 U/L (38-126); Anion Gap 11 mmol/L (8-16); Aspartate Amino Transferase 21 U/L (14-36); Bilirubin,Total 0.3 mg/dL (0.2-1.3); Blood Urea Nitrogen 5 mg/dL (7-17); Calcium 8.9 mg/dL (8.4-10.2); Carbon Dioxide 21 mmol/L (22-30); Chloride 108 mmol/L (98-107); Estimated Glomerular Filt Rate > 60; Glucose 74 mg/dL (65-105); Potassium 3.4 mmol/L (3.4-5.0); Sodium 140 mmol/L (137-145)
--- NOTE | 2020-08-26 13:11 | ECG_ITS ---
Measurements Intervals [place] Rate: 60 P: 20 ID: 137 QRS: 14 QRSD: 111 T: -15 QT: 399 QTc: 401 Interpretive Statements SINUS RHYTHM INTRAVENTRICULAR CONDUCTION DELAY ST-T WAVE ABNORMALITY IN ANTERIOR LEADS- CONSIDER ISCHEMIA BASELINE ARTIFACT- I, II, AVR, AVL ABNORMAL ECG Electronically Signed On 08-26-2020 15:55:04 CDT by Garret Chong D.O.
--- NOTE | 2020-08-26 14:00 | WPDCN ---
Assessment and Plan Assessment and plan (1) Bilateral pneumonia: Code(s): J18.9 - Pneumonia, unspecified organism <Katie Kelsey PA-C - Last Filed: 08/27/20 00:53> Status: Acute <Katie Tresa ALYSIA Kelsey - Last Filed: 08/27/20 00:53> Assessment and Plan: Bibasilar pneumonia noted on chest x-ray today. She has been started on ceftriaxone and azithromycin. Sputum to be attempted for culture. Albuterol inhaler p.r.n. for shortness of breath or wheezing. Rule out COVID-19 though seems less likely. <Katie Kelsey PA-C - Last Filed: 08/27/20 00:53> (2) Person under investigation for COVID-19: Code(s): Z20.822 - Contact with and (suspected) exposure to COVID-19 <Katie Kelsey PA-C - Last Filed: 08/27/20 00:53> Status: Acute <Katie RolyAshley Kelsey PA-C - Last Filed: 08/27/20 00:53> Assessment and Plan: Patient has been placed in isolation pending SARS-CoV-2 by PCR. <Katie Kelsey PA-C - Last Filed: 08/27/20 00:53> (3) Normocytic anemia: Code(s): D64.9 - Anemia, unspecified <Katie RolyAshley Kelsey PA-C - Last Filed: 08/27/20 00:53> Status: Acute <Katie Kelsey PA-C - Last Filed: 08/27/20 00:53> Assessment and Plan: Stable on review of previous labs. <Katie Kelsey PA-C - Last Filed: 08/27/20 00:53> (4) Elevated blood pressure reading: Code(s): R03.0 - Elevated blood-pressure reading, without diagnosis of hypertension <Katie Kelsey PA-C - Last Filed: 08/27/20 00:53> Status: Acute <Katie Kelsey PA-C - Last Filed: 08/27/20 00:53> Assessment and Plan: Blood pressures have been creeping upwards. Management deferred to primary service. <Katie Kelsey PA-C - Last Filed: 08/27/20 00:53> Additional Plan Thank you for allowing us to participate in this patient's care. Please do not hesitate to contact us with any questions. Supervising physician for this medical consultation is Dr. Torey Cabral. <Katie Kelsey PA-C - Last Filed: 08/27/20 00:53> HPI Data of Consult Date/Time: 08/26/20 14:00 <Katie Kelsey PA-C - Last Filed: 08/27/20 00:53> Requesting Physician: Margo Baker MD <Katie Kelsey PA-C - Last Filed: 08/27/20 00:53> Primary Care Provider: FOUNDRY FINISHER PHYSICIAN <Katie Kelsey PA-C - Last Filed: 08/27/20 00:53> Consult Narrative Narrative: This is a 20-year-old female, 37 weeks gestation, whom the hospitalist service has been consulted for recommendations regarding findings of pneumonia on chest x-ray today. Upon waking this morning she had her typical nausea and episode of emesis which seems to have persisted throughout her , however she felt worse this morning than she had for quite some time. After leaving the bathroom she began to feel a bit short of breath and she continued to feel short of breath even when walking about the house. She then presented for evaluation in OB today and was found to have evidence of pneumonia on chest x-ray, and she is being admitted for observation. It is noted that she was hospitalized for 2 and half days this week and in fact was discharged home yesterday. At that time she presented with flank pain and was found to have pretty significant hydronephrosis, and she was seen by Dr. Burnett who thought it was probably related to however he recommends abdominal CT post delivery for further evaluation. It is also noted that she was started on Augmentin on 08/22/2020 for coag-negative staph UTI, but she was told she did not have to take that any longer on discharge as she received 3 days of IV antibiotics. In any event at the time my evaluation she is complaining of pleuritic chest pain and she is noted to be breathing quite
--- NOTE | 2020-08-26 16:09 | PC.NURSE ---
Dr. Baker returned 2nd page and informed of return to pt's pain that she currently rates as an 8-9 out of 10- mainly in her back but still having some chest discomfort. Shortness of breath worse again with pt's pain. Orders received.
--- NOTE | 2020-08-26 17:30 | PM.IMPN ---
Progress Note: A&P Assessment and Plan (1) Bilateral pneumonia: Code(s): J18.9 - Pneumonia, unspecified organism Status: Acute Assessment and Plan: Bibasilar pneumonia noted on chest x-ray today. Continue Augmentin (prescribed for UTI) and add azithromycin. Sputum to be attempted for culture. Albuterol inhaler p.r.n. for shortness of breath or wheezing. Rule out COVID-19. 08/26/20 17:30 Patient 20-year-old female 37 week was found to have community-acquired pneumonia patient is being treated with Rocephin azithromycin, there is a concern the patient may be positive for COVID-19 being tested an isolated, currently patient is more in pain due to her , I spoke with patient nurse and she will contact her Ob pain managed, will follow-up on COVID test, will continue to monitor may not repeat x-rays patient is unless as necessary if her symptoms worsen. (2) Urinary tract infection: Code(s): N39.0 - Urinary tract infection, site not specified Status: Acute Assessment and Plan: Prescribed Augmentin on 08/22/[address] Templeton for UTI. Continue the same. (3) Person under investigation for COVID-19: Code(s): Z20.822 - Contact with and (suspected) exposure to COVID-19 Status: Acute Assessment and Plan: Patient has been placed in isolation pending SARS-CoV-2 by PCR. (4) Normocytic anemia: Code(s): D64.9 - Anemia, unspecified Status: Acute Assessment and Plan: Stable on review of previous labs. (5) Elevated blood pressure reading: Code(s): R03.0 - Elevated blood-pressure reading, without diagnosis of hypertension Status: Acute Assessment and Plan: Blood pressures have been creeping upwards. Management deferred to primary service. Subjective Date/time seen: 08/26/20 17:30 Patient 20-year-old female 37 week was found to have community-acquired pneumonia patient is being treated with Rocephin azithromycin, there is a concern the patient may be positive for COVID-19 being tested an isolated, currently patient is more in pain due to her , I spoke with patient nurse and she will contact her Ob pain managed, will follow-up on COVID test, will continue to monitor may not repeat x-rays patient is unless as necessary if her symptoms worsen. Review of Systems Review of Systems: All systems reviewed & are unremarkable except as noted in HPI and below Exam Narrative: Exam Narrative: Patient is comfortable, NAD HEENT: eyes are clear and none icteric LUNGS: Poor effort minimal rhonchi ABD: Lower extremities: no edema SKIN: nonjaundiced Neuro: grossly intact. Objective Data Vital Signs Vital Signs: Vital Signs - 24 hr 08/26/20 11:18 08/26/20 11:23 08/26/20 11:28 Pulse Rate Blood Pressure Pulse Oximetry 100 100 100 08/26/20 11:31 08/26/20 11:33 08/26/20 11:38 Pulse Rate 59 L Blood Pressure 153/92 H Pulse Oximetry 100 100 08/26/20 11:43 08/26/20 11:44 08/26/20 11:46 Pulse Rate 57 L Blood Pressure 159/85 H Pulse Oximetry 100 100 08/26/20 11:49 08/26/20 12:04 08/26/20 12:05 Pulse Rate 60 Blood Pressure 142/84 H Pulse Oximetry 98 100 08/26/20 12:19 08/26/20 12:24 08/26/20 12:29 Pulse Rate Blood Pressure Pulse Oximetry 95 100 99 08/26/20 12:34 08/26/20 12:39 08/26/20 12:44 Pulse Rate Blood Pressure Pulse Oximetry 99 96 98 08/26/20 12:49 08/26/20 12:54 08/26/20 12:59 Pulse Rate Blood Pressure Pulse Oximetry 97 96 97 08/26/20 13:01 08/26/20 13:04 08/26/20 13:09 Pulse Rate 72 Blood Pressure 141/83 H Pulse Oximetry 98 97 08/26/20 13:14 08/26/20 13:19 08/26/20 13:24 Pulse Rate Blood Pressure Pulse Oximetry 97 98 98 08/26/20 13:29 08/26/20 13:34 08/26/20 13:39 Pulse Rate Blood Pressure Pulse Oximetry 98 98 99 08/26/20 13:43 08/26/20 13:48 08/16
[2020-08-26] MEDS: HYDROcodone/acetaminophen (*CRX) 10-325 MG TABLET 1 TAB PO (19:20)
--- NOTE | 2020-08-26 22:34 | PC.NURSE ---
2230 - pt requesting to get up and in the shower. Saline Lock cover and taped for protection. Pt states she is feeling anxious and wants to see if the shower will relax her. States she has a lot on her mind and is worrying about how she will juggle everything once the baby come home. Pt states she has a good support system and is confident she will be ok, just has a lot on her mind. Pt will call out after her shower to obtain VS and to continue monitoring.
--- NOTE | 2020-08-26 23:22 | PC.NURSE ---
2300 - pt states she feels much better after her shower. states she is in no pain and is ready to go to sleep. Pt will call out if she needs anything.
[2020-08-27] VITALS (37 sets, daily range): BP systolic 91–139; BP diastolic 76–88; PULSE 53–92; RESP 16–18; TEMP 36.1–36.6; O2SAT 97–100
[2020-08-27] MEDS: ONDANSETRON INJ 4 MG/2 ML VIAL IV PUSH ×5 (00:02→18:35)
[2020-08-27] MEDS: HYDROcodone/acetaminophen (*CRX) 5-325 MG TABLET 1 TAB PO (00:02)
--- NOTE | 2020-08-27 01:05 | PC.NURSE ---
0000 - CEDRIC Lora at bedside.
[2020-08-27] MEDS: HYDROcodone/acetaminophen (*CRX) 10-325 MG TABLET 1 TAB PO ×3 (05:28→18:35)
--- NOTE | 2020-08-27 11:48 | PM.GYNPNOP ---
PROFESSIONAL ARCHITECT - A/P Postoperative Postoperative day: 1 Postoperative status: doing well Postoperative plan: discharge and other (just wants to take motrin/tylenol; plans estradiol patch) Time Spent With Patient Time: Total time spent is greater than 50% in coordination of care (as documented) at patient's floor/unit and/or counseling patient: Time with patient: less than 15 minutes PROFESSIONAL ARCHITECT- PN:Otilia Post-Op Subjective Date/time seen: 08/27/20 11:48 Subjective: patient has no complaints, pain is well controlled and patient is tolerating oral intake Exam Narrative: Exam Narrative: inc c/d/i abdomen soft, nt, nd PROFESSIONAL ARCHITECT - PN: Obj Data Vital Signs Vital Signs: Vital Signs - 24 hr 08/26/20 11:49 08/26/20 12:04 08/26/20 12:05 Temperature Pulse Rate 60 Respiratory Rate Blood Pressure 142/84 H Pulse Oximetry 98 100 08/26/20 12:17 08/26/20 12:19 08/26/20 12:24 Temperature Pulse Rate Respiratory Rate 20 Blood Pressure Pulse Oximetry 95 100 08/26/20 12:29 08/26/20 12:34 08/26/20 12:39 Temperature Pulse Rate Respiratory Rate Blood Pressure Pulse Oximetry 99 99 96 08/26/20 12:44 08/26/20 12:49 08/26/20 12:54 Temperature Pulse Rate Respiratory Rate Blood Pressure Pulse Oximetry 98 97 96 08/26/20 12:59 08/26/20 13:01 08/26/20 13:04 Temperature Pulse Rate 72 Respiratory Rate Blood Pressure 141/83 H Pulse Oximetry 97 98 08/26/20 13:09 08/26/20 13:14 08/26/20 13:19 Temperature Pulse Rate Respiratory Rate Blood Pressure Pulse Oximetry 97 97 98 08/26/20 13:24 08/26/20 13:27 08/26/20 13:29 Temperature Pulse Rate Respiratory Rate 20 Blood Pressure Pulse Oximetry 98 98 08/26/20 13:34 08/26/20 13:39 08/26/20 13:43 Temperature Pulse Rate Respiratory Rate Blood Pressure Pulse Oximetry 98 99 98 08/26/20 13:48 08/26/20 13:53 08/26/20 13:58 Temperature Pulse Rate Respiratory Rate Blood Pressure Pulse Oximetry 99 98 98 08/26/20 14:00 08/26/20 14:01 08/26/20 14:03 Temperature 98.7 F Pulse Rate 67 Respiratory Rate Blood Pressure 128/80 Pulse Oximetry 98 08/26/20 14:08 08/26/20 14:13 08/26/20 14:18 Temperature Pulse Rate Respiratory Rate Blood Pressure Pulse Oximetry 98 99 99 08/26/20 14:23 08/26/20 14:24 08/26/20 14:28 Temperature Pulse Rate Respiratory Rate Blood Pressure Pulse Oximetry 98 98 98 08/26/20 14:33 08/26/20 14:38 08/26/20 14:43 Temperature Pulse Rate Respiratory Rate Blood Pressure Pulse Oximetry 99 98 98 08/26/20 14:48 08/26/20 14:53 08/26/20 14:58 Temperature Pulse Rate Respiratory Rate Blood Pressure Pulse Oximetry 98 99 98 08/26/20 14:59 08/26/20 15:00 08/26/20 15:01 Temperature 98.9 F Pulse Rate 70 Respiratory Rate 20 Blood Pressure 135/84 Pulse Oximetry 99 08/26/20 15:04 08/26/20 15:09 08/26/20 15:14 Temperature Pulse Rate Respiratory Rate Blood Pressure Pulse Oximetry 99 97 99 08/26/20 15:19 08/26/20 15:24 08/26/20 15:29 Temperature Pulse Rate Respiratory Rate Blood Pressure Pulse Oximetry 97 97 97 08/26/20 15:34 08/26/20 15:39 08/26/20 15:44 Temperature Pulse Rate Respiratory Rate Blood Pressure Pulse Oximetry 95 98 99 08/26/20 15:49 08/26/20 15:54 08/26/20 15:59 Temperature Pulse Rate Respiratory Rate Blood Pressure Pulse Oximetry 97 96 97 08/26/20 16:01 08/26/20 16:04 08/26/20 16:10 Temperature Pulse Rate 72 Respiratory Rate Blood Pressure 119/67 Pulse Oximetry 97 96 08/26/20 16:15 08/26/20 16:20 08/26/20 16:25 Temperature Pulse Rate Respiratory Rate Blood Pressure Pulse Oximetry 98 97 98 08/26/20 16:30 08/26/20 16:35 08/26/20 16:40 Temperature Pulse Rate Respiratory Rate Blood Pressure Pulse Oximetry 98 97 98
--- NOTE | 2020-08-27 12:07 | WPDOBADMIT ---
Obstetrics - Admit Note Admission Note: record reviewed. Pertinent additions to the history and/or any subsequent changes in the physical findings that are not consistent with the expected course of the were found. Additions to the history and/or subsequent changes in the physical findings follow. Patient readmitted yesterday with SOB and was diagnosed with pneumonia. States she is feeling much better this am without shortness of breath. Chest pain is minimal. Back pain from probable stone/severe hydronephrosis is improving since prior admit. afebile vss afebrile Lungs clear abdomen soft, nt; FHTs reactive; occ contractions netbackup admin right lower CXR-bilateral lower pneumonia CMP ok CBC ok a/p 1. IUP 36 weeks 2. Pneumonia-probably started with atelectasis with shallow breathing secondary to severe pain of prior admit. Has received 2 doses of Azithromycin and will be getting 2nd dose of Rocephin at 4 pm. If ok per hospitalist service, can dc home after that. 3. Recent UTI/severe hydronephrosis/ probable stone-was to complete Augmentin at home. 4. FHTs reactive
[2020-08-27] MEDS: POTASSIUM CHLORIDE 20 MEQ TABLET 40 MEQ PO (14:09)
--- NOTE | 2020-08-27 16:06 | PM.IMPN ---
Progress Note: A&P Assessment and Plan (1) Bilateral pneumonia: Code(s): J18.9 - Pneumonia, unspecified organism Status: Acute Assessment and Plan: 08/27/20 16:08/26 Patient 20-year-old female 37 week was found to have community-acquired pneumonia patient is being treated with Rocephin azithromycin, there is a concern the patient may be positive for COVID-19 being tested an isolated, currently patient is more in pain due to her , I spoke with patient nurse and she will contact her Ob pain managed, will follow-up on COVID test, will continue to monitor may not repeat x-rays patient is unless as necessary if her symptoms worsen. 08/27 COVID test is still pending, patient states feeling little better compared to yesterday not a short of breath and cough is better, denies any fever or chills, patient is being treated Rocephin azithromycin, will clinically monitor the patient if possible not to expose too much radiation as patient is . (2) UTI (urinary tract infection): Code(s): N39.0 - Urinary tract infection, site not specified Status: Acute Assessment and Plan: Patient with a severe hydronephrosis possibly kidney stone seen by OBGYN was started on Augmentin (3) Person under investigation for COVID-19: Code(s): Z20.822 - Contact with and (suspected) exposure to COVID-19 Status: Acute Assessment and Plan: Patient under isolation and tested, test still pending (4) 37 weeks gestation of : Code(s): Z3A.37 - 37 weeks gestation of Status: Acute Assessment and Plan: Patient seen her OB further recommendation to follow Subjective Date/time seen: 08/27/20 16:08/26 Patient 20-year-old female 37 week was found to have community-acquired pneumonia patient is being treated with Rocephin azithromycin, there is a concern the patient may be positive for COVID-19 being tested an isolated, currently patient is more in pain due to her , I spoke with patient nurse and she will contact her Ob pain managed, will follow-up on COVID test, will continue to monitor may not repeat x-rays patient is unless as necessary if her symptoms worsen. 08/27 COVID test is still pending, patient states feeling little better compared to yesterday not a short of breath and cough is better, denies any fever or chills, patient is being treated Rocephin azithromycin, will clinically monitor the patient if possible not to expose too much radiation as patient is . Review of Systems Review of Systems: All systems reviewed & are unremarkable except as noted in HPI and below Objective Data Vital Signs Vital Signs: Vital Signs - 24 hr 08/26/20 16:10 08/26/20 16:15 08/26/20 16:20 Temperature Pulse Rate Respiratory Rate Blood Pressure Pulse Oximetry 96 98 97 08/26/20 16:25 08/26/20 16:30 08/26/20 16:35 Temperature Pulse Rate Respiratory Rate Blood Pressure Pulse Oximetry 98 98 97 08/26/20 16:40 08/26/20 16:45 08/26/20 16:50 Temperature Pulse Rate Respiratory Rate Blood Pressure Pulse Oximetry 98 97 97 08/26/20 16:55 08/26/20 17:00 08/26/20 17:01 Temperature Pulse Rate 66 Respiratory Rate Blood Pressure 113/59 L Pulse Oximetry 97 97 08/26/20 17:05 08/26/20 17:10 08/26/20 17:15 Temperature Pulse Rate Respiratory Rate Blood Pressure Pulse Oximetry 86 L 98 98 08/26/20 17:20 08/26/20 17:25 08/26/20 17:30 Temperature Pulse Rate Respiratory Rate Blood Pressure Pulse Oximetry 97 97 97 08/26/20 17:35 08/26/20 17:40 08/26/20 17:45 Temperature Pulse Rate Respiratory Rate Blood Pressure Pulse Oximetry 96 96 96 08/26/20 17:50 08/26/20 17:55 08/26/20 18:00 Temperature Pulse Rate Respiratory Rate Blood Pressure Pulse Oximetry 95 98 97 08/26/20 18:01 08/26/20 18:05
--- NOTE | 2020-08-27 16:49 | PC.NURSE ---
7730--Pt. discussing with me re: anxiety and lack of control. 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 Discussed potential for her to have it again after this baby. Handouts re: PP depression and PP mood disorders given to the pt. and pt. encouraged to read over the information with her s.o. and family. Also encouraged the pt. to talk about a plan for after delivery with her care provider. Pt. verbalizes understanding.
[2020-08-27 17:56] LABS: SARS-CoV-2 RNA PCR Negative
--- NOTE | 2020-08-27 20:52 | PC.NURSE ---
2044 - pt requesting to get in the shower at this time. Pt states she will call out when she is out of the shower.
[2020-08-28] VITALS (8 sets, daily range): BP systolic 126–156; BP diastolic 77–90; PULSE 54–66; RESP 18; TEMP 35.9–36.1
[2020-08-28] MEDS: ONDANSETRON INJ 4 MG/2 ML VIAL IV PUSH ×3 (00:54→13:48)
[2020-08-28] MEDS: HYDROcodone/acetaminophen (*CRX) 10-325 MG TABLET 1 TAB PO (00:54)
--- NOTE | 2020-08-28 09:34 | P.PNOB_ITS ---
OB - PN: Subj Subjective Date/time seen: 08/28/20 09:34 Patient comments: no complaints, pain well controlled and other (no SOB) OB - PN: Obj Data Labs CBC & Chem 7: 08/26/20 11:52 08/26/20 11:52 Labs: Laboratory Results - last 24 hr 08/26/20 13:25 SARS-CoV-2 RNA (RT-PCR) Negative OB - PN A/P Assessment and Plan (1) 37 weeks gestation of : Code(s): Z3A.37 - 37 weeks gestation of Status: Acute Assessment and Plan: BP's up a few hours during the night with severe pain episode resolved now no signs of preeclampsia (2) Bilateral pneumonia: Code(s): J18.9 - Pneumonia, unspecified organism Status: Acute Assessment and Plan: continue antibiotics DC today after 3rd dose per hospitalist (3) Hydronephrosis: Code(s): N13.30 - Unspecified hydronephrosis Status: Acute Assessment and Plan: Pain stable and controlled with [place] Time Spent With Patient Time: Total time spent is greater than 50% in coordination of care (as documented) at patient's floor/unit and/or counseling patient: Exam Const: General: comfortable and no acute distress Resp: Effort & Inspection: normal respiratory effort Auscultation: clear to auscultation bilaterally Back/Spine/Pelvis: Other: minimal right back pain
[2020-08-28] MEDS: HYDROcodone/acetaminophen (*CRX) 5-325 MG TABLET 1 TAB PO (13:48)
--- NOTE | 2020-08-28 16:25 | PM.IMPN ---
Progress Note: A&P Assessment and Plan (1) Bilateral pneumonia: Code(s): J18.9 - Pneumonia, unspecified organism Status: Acute Assessment and Plan: 08/28/20 16:25 08/26 Patient 20-year-old female 37 week was found to have community-acquired pneumonia patient is being treated with Rocephin azithromycin, there is a concern the patient may be positive for COVID-19 being tested an isolated, currently patient is more in pain due to her , I spoke with patient nurse and she will contact her Ob pain managed, will follow-up on COVID test, will continue to monitor may not repeat x-rays patient is unless as necessary if her symptoms worsen. 08/27 COVID test is still pending, patient states feeling little better compared to yesterday not a short of breath and cough is better, denies any fever or chills, patient is being treated Rocephin azithromycin, will clinically monitor the patient if possible not to expose too much radiation as patient is . 08/28 patient COVID test is negative, patient is feeling much better denies any cough shortness of breath fever or chills patient was seen by her Ob, patient clinically stable will discharge the patient home today patient will continue her remaining Augmentin was given by her Ob for UTI. Patient is instructed if any symptoms gets worse go to nearest emergency depart, patient will follow-up with her OB as scheduled. (2) UTI (urinary tract infection): Code(s): N39.0 - Urinary tract infection, site not specified Status: Acute Assessment and Plan: Patient with a severe hydronephrosis possibly kidney stone seen by OBGYN was started on Augmentin (3) Person under investigation for COVID-19: Code(s): Z20.822 - Contact with and (suspected) exposure to COVID-19 Status: Acute Assessment and Plan: Patient under isolation and tested, test still pending (4) 37 weeks gestation of : Code(s): Z3A.37 - 37 weeks gestation of Status: Acute Assessment and Plan: Patient seen her OB further recommendation to follow Additional Plan Thank you for allowing us to participate in this patient's care. Please do not hesitate to contact us with any questions. Supervising physician for this medical consultation is Dr. Torey Cabral. Subjective Date/time seen: 08/28/20 16:25 08/26 Patient 20-year-old female 37 week was found to have community-acquired pneumonia patient is being treated with Rocephin azithromycin, there is a concern the patient may be positive for COVID-19 being tested an isolated, currently patient is more in pain due to her , I spoke with patient nurse and she will contact her Ob pain managed, will follow-up on COVID test, will continue to monitor may not repeat x-rays patient is unless as necessary if her symptoms worsen. 08/27 COVID test is still pending, patient states feeling little better compared to yesterday not a short of breath and cough is better, denies any fever or chills, patient is being treated Rocephin azithromycin, will clinically monitor the patient if possible not to expose too much radiation as patient is . 08/28 patient COVID test is negative, patient is feeling much better denies any cough shortness of breath fever or chills patient was seen by her Ob, patient clinically stable will discharge the patient home today patient will continue her remaining Augmentin was given by her Ob for UTI. Patient is instructed if any symptoms gets worse go to nearest emergency depart, patient will follow-up with her OB as scheduled. Review of Systems Review of Systems: All systems reviewed & are unremarkable except as noted in HPI and below Exam Narrative: Exam Narrative: Patient is comfortable, NAD HEENT: eyes are clear and none icteric LUNGS: Poor effort
[2020-08-28 22:02] LABS: Pneumococcal Antigen Urine Not Detected (Not Detected)
[2020-08-29 06:34] LABS: Legionella pneumophila Ag Ur Not Detected (Not Detected)
--- NOTE | 2020-09-01 07:30 | PM.DS ---
DS: Admitting Diagnosis Admitting Diagnosis Admitting Diagnosis: IUP 37 wks SOB hydronephrosis DS: Discharge Diagnosis Discharge Diagnosis (1) 37 weeks gestation of : Code(s): Z3A.37 - 37 weeks gestation of Status: Acute (2) Hydronephrosis: Code(s): N13.30 - Unspecified hydronephrosis Status: Acute (3) Bilateral pneumonia: Code(s): J18.9 - Pneumonia, unspecified organism Status: Acute DS: Summary Hospital Course Hospital Course: Diagnosed with bilateral pneumonia. Given ceftriaxone and azythromycin x 3 days per hospitalist recommendation. SOB resolved within 24 hours. Remained afebile throughout Continued with flank pain with severe hydronephrosis requiring norco q 4-6 hours. Status at Discharge Functional status at discharge: independent ambulation Time Spent with Patient Time attestation: Total time spent providing and/or coordinating discharge services: Time spent: Less than 30 minutes Discharge Plan Discharge Attending physician on discharge: Sherry Baker Consulting providers: Torey Cabral ; Brian Hernández ; Katie Kelsey ; Garret Chong Discharging Clinician: Margo Baker Anticipated Discharge Date/Time: 08/27/20 16:49 Patient Disposition: Home, Self-Care Activity: as tolerated Diet: regular Discharge Instructions: OB ANTEPARTUM DISCHARGE INSTRUCTIONS This information is given to help you properly care for yourself at home after your discharge from the hospital. Follow these instructions until your doctor tells you otherwise. DIET: Eat Three Well Balanced Meals per Day Small Frequent Feedings Drink at Least Eight 8-Ounce Glasses of Caffeine-Free Beverages Daily Additional Diet Instructions: ACTIVITY: As Tolerated Additional Activity Instructions: RETURN TO LABOR AND DELIVERY IF YOU HAVE: Any Change In Baby's Normal Movement Pattern Any Leakage of Fluid Contractions 3-5 Minutes Apart with Increasing Intensity Vaginal Bleeding Additional Reasons to Return to Labor and Delivery: Contractions may feel like abdominal pain, tightening, cramping, pressure, back ache, or thigh ache. FOLLOW-UP CARE: Keep Next Scheduled Appointment To see in/on Valuables released to patient or family? N/A Medications from home returned to patient? N/A I Acknowledge Receipt of and Understand the Above Instructions IF YOU HAVE ANY QUESTIONS REGARDING THESE INSTRUCTIONS, PLEASE CALL [phone]. IF PROBLEMS ARISE, CALL YOUR PROVIDER. IF EMERGENCY CARE IS NEEDED, [facility] IS AVAILABLE 24 HOURS A DAY. Patient Instructions: Antibiotic Form Stand Alone Forms: General Discharge Information Follow-up/Referrals: Jareth Ewing MD [Physician] - Keep Reg. Scheduled Appt. Discharge Medications: Continued promethazine 25 mg tablet 25 mg PO TID PRN (Reason: nausea and vomiting) Qty: 30 RF: 1 hydrocodone-acetaminophen 5-325 mg tablet 1 tablet PO Q4H PRN (Reason: pain) Qty: 45 RF: 0 avinoerojc-pvoorcnqbmmqv-ybkw 50-300-40 mg capsule 1 - 2 cap PO Q4H PRN (Reason: Migraine Headache) RF: 0 sertraline [Zoloft] 50 mg Tablet 50 mg PO HS RF: 0 ergocalciferol (vitamin D2) [Vitamin D2] 1,250 mcg (50,000 unit) Capsule 1,250 mcg PO WEEKLY RF: 0 prenat.vits,wendy,csr-uuuf-yqwdn Tablet 1 tablet PO DAILY RF: 0 ferrous sulfate 142 mg (45 mg iron) Tablet Extended Release 142 mg PO DAILY RF: 0 Date of admission: 08/26/20 10:59 Primary Care Provider: PHYSICIAN,UPHOLSTERY REPAIRER Admitting Provider: Margo Baker Attending physician on admission: Margo Baker Condition: Stable
== END 2020-08-28 16:50 | disposition home or self-care (01) ==
PROVIDERS: Physician Assistant; Admitting Provider Obstetrics & Gynecology Gynecology; Visit Provider Obstetrics & Gynecology Gynecology
DX: O99.513 Diseases of the respiratory system complicating pregnancy, third trimester (principal); J18.9 Pneumonia, unspecified organism; O99.891 Other specified diseases and conditions complicating pregnancy; N13.30 Unspecified hydronephrosis; O23.43 Unspecified infection of urinary tract in pregnancy, third trimester; Z3A.37 37 weeks gestation of pregnancy; Z20.822 Contact with and (suspected) exposure to COVID-19
CPT/HCPCS: 36415; 59025; 71046; 80053; 85025; 87449; 87899; 93005; 96365; 96367; 96375; 96376; A9270; C9803; G0378; G0379; J0456; J0696; J2270; J2405; U0003; U0005

== ENCOUNTER 2020-09-08 04:53 | Inpatient (IN) | payer OTHER, SELFPAY ==
[2020-09-08] VITALS (76 sets, daily range): BP systolic 124–170; BP diastolic 72–129; PULSE 50–244; RESP 16–20; TEMP 35.9–36.9; O2SAT 83–100; BMI 21.8
--- NOTE | ~2020-09-08 | CT_ITS ---
EXAMINATION: CT abdomen pelvis wo con DATE: 09/09/2020 14:42 INDICATION: Right flank pain. TECHNIQUE: Computed tomography (CT) of the abdomen and pelvis was performed without intravenous contr ast. Automated exposure control and iterative reconstruction technique were employed. The dose-length product was 263.14 mGy-cm. COMPARISON: CT abdomen and pelvis 01/02/2020, kidney ultrasound 08/23/2020 FINDINGS: The visualized portions of the lung bases are clear without pneumonia or pleural effusion. The heart size is normal. No pericardial effusion. The liver, gallbladder, spleen, pancreas, and adre nal glands are normal. There is mild right hydronephrosis and hydroureter. There is a 1 mm calcificat ion in right pelvis. There is a 2 mm stone in left kidney. There are no dilated loops of bowel. The a ppendix is not visualized. The uterus is enlarged, consistent with recent . The endometrial complex is thickened 3.0 cm and contains hyperdense material. There is trace pelvic ascites. There ar e no pathologically enlarged lymph nodes. There is mild lumbar spondylosis. There are old fractures o f the bilateral L5 inferior facets. IMPRESSION: 1. Thickened endometrial complex suspicious for retained products of conception. 2. Mild right hydronephrosis and hydroureter. A 1 mm calcification in right pelvis may be a phlebolit h or ureteral stone. Reviewed, dictated and finalized at location A. IMPRESSION: 1. Thickened endometrial complex suspicious for retained products of conception . 2. Mild right hydronephrosis and hydroureter. A 1 mm calcification in right pel vis may be a phlebolith or ureteral stone.
--- NOTE | 2020-09-08 05:18 | LDADM ---
This patient, Ira Vieira, was admitted to Labor/Delivery/Recovery 104 on 09/08/20 at 04:53. Plans for labor, pain management and were discussed with patient. Patient/family oriented to hospital policies and general routines including ID bracelet, bed and alarms, visiting hours, pain management, procedures, bathroom and other care routines, personal items, smoking policy, room service/diet and guest tray routines, security routines, and visiting hours. Patient/Family are encouraged to report perceived risks to care and to ask questions if they do not understand what they are told or what they should do. See OBIX for further documentation.
[2020-09-08] MEDS: AMPICILLIN 2 GM/NS 100 ML 2 GM/100 ML BAG IVPB (05:24)
[2020-09-08] MEDS: LACTATED RINGERS 1,000 ML 125 ML IV CONT ×2 (05:24→08:15)
[2020-09-08] MEDS: OXYTOCIN 30 UNITS/NS 500 ML 30 UNITS/500 ML BAG IV CONT (05:24)
[2020-09-08 05:32] LABS: Basophils Absolute Auto 0.1 K/mm3 (0.0-0.1); Basophils Percent Auto 0.7 % (0.2-1.2); Eosinophils Absolute Auto 0.1 K/mm3 (0-0.3); Hematocrit 34.6 % (37.0-47.0); Hemoglobin 11.3 g/dL (12.0-15.0); Immature Granulocyte Absolute 0.08 K/mm3 (0.00-0.031); Immature Granulocyte Percent A 0.7 % (0-0.5); Lymphocytes Percent Auto 20.4 % (18.3-44.2); Mean Corpuscular HGB Conc 32.7 g/dl (32-36); Mean Corpuscular Hemoglobin 30.9 pg (26-34); Mean Corpuscular Volume 94.5 fl (80-100); Mean Platelet Volume 9.8 fl (7.4-10.4); Monocytes Absolute Auto 0.6 K/mm3 (0.1-0.6); Monocytes Percent Auto 5.4 % (2.6-8.5); Neutrophils Absolute Auto 8.5 K/mm3 (1.3-6.7); Neutrophils Percent Auto 71.8 % (45.5-73.1); Platelet Count Result 285 k/mm3 (150-375); Red Blood Count 3.66 M/mm3 (4.2-5.4); Red Cell Distribution Width 12.3 % (11.5-14.5); White Blood Count 11.8 K/mm3 (4.5-10.0)
[2020-09-08] MEDS: fentaNYL CITRATE INJ (*CRX) 100 MCG/2 ML VIAL 50 MCG IV PUSH ×2 (06:53→07:43)
--- NOTE | 2020-09-08 07:42 | WPDOBADMIT ---
Obstetrics - Admit Note Admission Note: record reviewed. No pertinent additions to the history and/or any subsequent changes in the physical findings that are not consistent with the expected course of the were found. Additions to the history and/or subsequent changes in the physical findings follow. Here for MIL. Cervix 5/80/-1 AROM with clear fluid. FHTs reactive.
[2020-09-08] MEDS: fentaNYL CITRATE INJ (*CRX) 100 MCG/2 ML VIAL IV PUSH (08:46)
[2020-09-08] MEDS: ONDANSETRON INJ 4 MG/2 ML VIAL IV PUSH (08:47)
--- NOTE | 2020-09-08 08:56 | WPDANESEPPF ---
Anes - Initial Pre Proc Eval Date/Time: 09/08/20 08:56 Surgeon: Margo Baker MD Pre Op Diagnosis: IOL Patient Data Age: 20 Gender: F Height: 1.68 m Weight: 61.3 kg Last Vital Signs Temp 35.9 C L 09/08/20 05:08 Pulse 76 09/08/20 08:30 BP 155/94 H 09/08/20 08:30 Allergies Allergy/AdvReac Type Severity Reaction Status Date / Time ketorolac [From Toradol] Allergy Mild Itching Verified 08/17/20 15:30 Home Medications Medication Instructions Recorded Confirmed Type sertraline [Zoloft] 50 mg PO HS 02/10/20 09/08/20 History ergocalciferol (vitamin D2) 1,250 mcg PO WEEKLY 08/17/20 09/08/20 History [Vitamin D2] ferrous sulfate 142 mg PO DAILY 08/17/20 09/08/20 History prenat.vits,wendy,nqw-mijz-hagnm 1 tablet PO DAILY 08/17/20 09/08/20 History hydrocodone-acetaminophen 1 tablet PO Q4H PRN #45 tablet 08/25/20 09/08/20 Rx promethazine 25 mg PO TID PRN #30 tablet 08/25/20 09/08/20 Rx coxuejnldh-huyrhbphfaoyj-jkly 1 - 2 cap PO Q4H PRN 08/26/20 09/08/20 History Laboratory Tests 09/08/20 09/08/20 09/08/20 05:16 05:16 05:16 WBC 11.8 K/mm3 H K/mm3 (4.5-10.0) RBC 3.66 M/mm3 L M/mm3 (4.2-5.4) Hgb 11.3 g/dL L g/dL (12.0-15.0) Hct 34.6 % L % (37.0-47.0) MCV 94.5 fl fl (80-100) MCH 30.9 pg pg (26-34) MCHC 32.7 g/dl g/dl (32-36) RDW 12.3 % % (11.5-14.5) Plt Count 285 k/mm3 k/mm3 (150-375) MPV 9.8 fl fl (7.4-10.4) Immature Gran % (Auto) 0.7 % H % (0-0.5) Neut % (Auto) 71.8 % % (45.5-73.1) Lymph % (Auto) 20.4 % % (18.3-44.2) Harmon % (Auto) 5.4 % % (2.6-8.5) Eos % (Auto) 1.0 % % (0-4.4) Baso % (Auto) 0.7 % % (0.2-1.2) Lymph # (Auto) 2.40 K/mm3 K/mm3 (0.9-3.2) Harmon # (Auto) 0.6 K/mm3 K/mm3 (0.1-0.6) Eos # (Auto) 0.1 K/mm3 K/mm3 (0-0.3) Baso # (Auto) 0.1 K/mm3 K/mm3 (0.0-0.1) Abs Immat Gran (auto) 0.08 K/mm3 H K/mm3 (0.00-0.031) Absolute Neuts (auto) 8.5 K/mm3 H K/mm3 (1.3-6.7) Absolute Nucleated RBC 0.0 K/mm3 K/mm3 (0.0-0.012) Nucleated RBC % 0.0 % % (0.0-0.2) RPR Pending Blood Type A Positive Antibody Screen Negative Patient hx anesthesia problems: none Family hx anesthesia problems: none [facility] Past Medical History Medical History (Updated 08/27/20 @ 00:52 by Katie Kelsey PA-C) Migraines Nephrolithiasis Recurrent urinary tract infection Surgical History Surgical History No pertinent past surgical history Family History Family History (Updated 08/26/20 @ 13:44 by Katie Kelsey PA-C) Grandparent Hypertension Liver cancer Mother Lung cancer Social History Social History (Updated 08/27/20 @ 00:50 by Katie Kelsey PA-C) Years smoked: 5 Smoking status: Current every day smoker Tobacco type: cigarettes Second hand tobacco smoke exposure: Yes Alcohol intake: current Substance use: never Substance use type: marijuana Additional living arrangements comments: The patient lives in [place] with her significant other and or 4-year-old son. Additional occupation/education comments: Unemployed, stay at home mom. Gender identity (if verbalized by the patient): Female Spiritual care concerns: No Anes - Eval Final PreProcedure Day of Procedure 09/08/20 08:56 Patient weight: overweight Heart: regular rate and rhythm Lungs: clear to auscultation and normal air movement Airway: Mallampati scale class II Neurological: alert and oriented Last oral intake: >/= 8 hours ASA classification: II Emergent: no Anesthetic plan: proceed Anesthesia type and monitoring: regional epidural Informed Consent: The patient's anesthetic plan and its attendant risks and benefits were discuss
[2020-09-08] MEDS: AMPICILLIN 1 GM/NS 50 ML 1 GM/50 ML BAG IVPB (09:24)
--- NOTE | 2020-09-08 11:02 | PM.OBPRVD ---
OB - Delivery Note Procedure Delivery date: 09/08/20 Procedure: events: Labor Induction Intrapartal events: None Induction method: AROM and per pitocin protocol Delivery monitor: external FHT and external uterine Route of delivery: Laceration Description: Periurethral Quantitative Blood Loss (ml): 97 Anesthesia type: Epidural Disposition: PACU Baby Date of : 09/10/20 Weeks of gestation at delivery: 39 gender: Male Weight (pounds): 7 Weight (ounces): 2 presentation: vertex position: Right Occiput Anterior Placenta delivery description: Spontaneous cord vessel description: 3 Vessels score one minute: 8 score five minutes: 9
--- NOTE | 2020-09-08 11:03 | PM.OBDSVD ---
DS: Admitting Diagnosis Admitting Diagnosis Admitting Diagnosis: MIL at 39 wk DS: Discharge Diagnosis Discharge Diagnosis (1) (normal spontaneous vaginal delivery): Code(s): O80 - Encounter for full-term uncomplicated delivery Status: Acute (2) Hydronephrosis: Code(s): N13.30 - Unspecified hydronephrosis Status: Acute OB - DS: Summary OB Procedures : Ultrasound OB Procedures Intrapartum: Spontaneous Vag Delivery OB Procedures: : None Peripartum Data Infant Delivery Method: Natural Vaginal Laceration Description: Periurethral complications: none Status at Discharge Functional status at discharge: independent ambulation Overall status at discharge: patient is progressing back to baseline Time Spent with Patient Time attestation: Total time spent providing and/or coordinating discharge services: DS: Data Data Completed and Pending Labs on day of discharge: Labs from last 24 hours 09/08/20 09/08/20 09/08/20 05:16 05:16 05:16 WBC 11.8 H RBC 3.66 L Hgb 11.3 L Hct 34.6 L MCV 94.5 MCH 30.9 MCHC 32.7 RDW 12.3 Plt Count 285 MPV 9.8 Immature Gran % (Auto) 0.7 H Neut % (Auto) 71.8 Lymph % (Auto) 20.4 Dodge % (Auto) 5.4 Eos % (Auto) 1.0 Baso % (Auto) 0.7 Lymph # (Auto) 2.40 Dodge # (Auto) 0.6 Eos # (Auto) 0.1 Baso # (Auto) 0.1 Abs Immat Gran (auto) 0.08 H Absolute Neuts (auto) 8.5 H Absolute Nucleated RBC 0.0 Nucleated RBC % 0.0 RPR Pending Blood Type A Positive Antibody Screen Negative Discharge Plan Discharge Attending physician on discharge: Margo Baker Consulting providers: Juan Goldberg Discharging Clinician: Jareth Ewing Anticipated Discharge Date/Time: 09/10/20 11:04 Patient Disposition: Home, Self-Care Activity: may shower and pelvic rest Diet: regular Discharge Instructions: Urology Instructions: Call the office to schedule a follow up visit with Dr. Goldberg or Terese VILA after your ultrasound in two weeks. Education: Mom and Baby Guide Given to: Mother Follow-Up: Call your delivering provider's office for an appointment to be seen in: 6 Weeks Mom and baby should come to the [facility] for the follow-up appointment. Appointment Date/Time: September 12, 2020 at 11:00 am What to expect at your follow-up visit: Physical Assessment Call [phone] if you are unable to keep your appointment time. BREAST CARE: * Wear a snug supportive bra. * For engorgement discomfort: Breast Feeding: * Apply warm moist washcloths * Express milk as needed to relieve engorgement * Wear loose clothing * For sore nipples: * Identify correct latch-on * Apply warm moist washcloths before and after nursing * Air dry nipples after nursing * May apply Lansinoh cream to nipples EPISIOTOMY/PERINEAL CARE: * Until bleeding stops, use your jaymie bottle after urinating * Change your pad frequently throughout the day * No tub baths until seen by your physician - You may shower ACTIVITY: * Rest as much as possible. * Do not exercise or lift anything heavier than your baby (such as laundry or other children.) * Avoid stairs or driving as much as possible. * Do not put anything into the vagina. No douching, tampons, or sexual activity until seen by physician. NOTIFY PHYSICIAN IF YOU HAVE ANY QUESTIONS OR IF ANY OF THE FOLLOWING SYMPTOMS OCCUR: * If your perineum becomes red, swollen, or more painful than what you have experienced in the hospital. * If your vaginal bleeding becomes foul smelling. * If your vaginal bleeding becomes more heavy than a period or if your bleeding changes from pink to bright red. However, you may pass an occasional walnut-sized clot once or twice for the first week . * If you experience a sharp, sh
[2020-09-08] MEDS: OXYTOCIN 30 UNITS/NS 500 ML 30 UNITS/500 ML BAG 125 UNITS IV CONT ×2 (11:37→15:40)
--- NOTE | 2020-09-08 14:38 | OBPPTRN ---
Patient transferred to post room #285 via wheelchair. Support person present. Oriented to unit, room, information board, rooming in, admission packet and security measures. Patient verbalizes understanding. with patient.
[2020-09-08] MEDS: WITCH HAZEL 40 PADS 1 PAD TOPICAL (15:40)
[2020-09-08] MEDS: BENZOCAINE 20% AER SPR (*SP) 56 GM CAN 1 SPRAY TOPICAL (15:40)
[2020-09-08] MEDS: IBUPROFEN 600 MG TABLET PO (18:10)
[2020-09-08] MEDS: HYDROcodone/acetaminophen (*CRX) 10-325 MG TABLET 1 TAB PO (20:24)
[2020-09-09] VITALS (7 sets, daily range): BP systolic 137–145; BP diastolic 76–96; PULSE 65–83; RESP 16–18; TEMP 36.6–37.1; O2SAT 100
[2020-09-09] MEDS: IBUPROFEN 600 MG TABLET PO ×3 (03:18→18:58)
[2020-09-09] MEDS: HYDROcodone/acetaminophen (*CRX) 10-325 MG TABLET 1 TAB PO ×4 (03:19→23:38)
[2020-09-09 03:47] LABS: Hematocrit 25.8 % (37.0-47.0); Hemoglobin 8.2 g/dL (12.0-15.0)
--- NOTE | 2020-09-09 08:04 | WPDANLDPN2 ---
Anes-Prog Note L&D Date/Time: 09/09/20 08:04 Comfortable throughout: labor and delivery Neuraxial method: epidural Epidural/Spinal procedure site: clean & non-tender Neuro status: Neuro function grossly intact. Cardiovascular status: normal Respiratory status: normal Airway patency: baseline Mental status: baseline Post-Op hydration status: normal Vital Signs: Last Vital Signs Temp 37.1 C 09/09/20 03:41 Pulse 70 09/09/20 03:41 Resp 18 09/09/20 03:41 BP 145/76 H 09/09/20 03:41 Pulse Ox 100 09/08/20 20:00 Pain score (VAS): 0 I/O: Intake & Output 09/08/20 09/09/20 09/09/20 23:59 07:59 15:59 Intake Total 1200 Balance 1200 Post-procedural complaints: none Patient feedback: Patient satisfied with anesthetic care.
[2020-09-09] MEDS: MULTIVIT/MIN/PREN/FOL AC/IRON TABLET 1 TAB PO (08:09)
[2020-09-09] MEDS: DOCUSATE SODIUM 100 MG CAPSULE PO ×2 (08:09→17:49)
[2020-09-09] MEDS: POLYSACCHARIDE IRON COMPLEX 150 MG CAPSULE PO ×2 (08:09→17:49)
[2020-09-09] MEDS: LANOLIN (LANSINOH) 7.5 GM CREAM 1 APPLIC TOPICAL (08:09)
[2020-09-09 09:27] LABS: Rapid Plasma Reagin Non-Reactive (NonReactive)
--- NOTE | 2020-09-09 11:42 | PC.NURSE ---
Consulted with patient, reviewed infant feeding cues, frequencies, duration of feedings, feeding elimination flow sheet, and signs of adequate intake. Demonstrated stimulation techniques to wake infant for feeding. on the breast. Encouraged mom to keep in close to her and tummy to tummy to help keep from slipping back off the breast. Reviewed deep latch and how to help to get on deeper once he is on the breast. Reviewed positioning/alignment, holding breast and asymmetrical latch on. was latched correctly. nursed sleeply, mom states had been on the breast over a half hour. Reviewed compression of the breast and how to get an effective session, cluster feeding and comfort nursing. Reviewed signs of a correct latch, effective nursing and suck swallow ratio. Infant was able to maintain latch without discomfort to mother. Nipple care reviewed. Instructed mother to call out for RN assistance if she is unable to latch for feeding or she has discomfort with nursing. Instructed feeding should be initiated three hours from start of last feeding or if feeding cues are noted before. Mother voiced understanding of information shared.
[2020-09-09] MEDS: HYDROcodone/acetaminophen (*CRX) 5-325 MG TABLET 1 TAB PO (12:55)
--- NOTE | 2020-09-09 16:05 | WPDURCON ---
Assessment and Plan Assessment and plan (1) Hydronephrosis: Code(s): N13.30 - Unspecified hydronephrosis Status: Acute Assessment and Plan: CT shows Mild right hydronephrosis and hydroureter. A 1 mm calcification in right pelvis may be a phlebolith or ureteral stone. The plan will be to encourage her to push fluids, then get a KALEB in 2 weeks prior to a follow up with Dr. Goldberg or myself in the office. No intervention at this time, the stone is not causing obstruction and her ureter is likely compressed d/t her uterus. Patient is aware of the plan. Urology Consult Note HPI Date Seen: 09/09/20 Requesting Physician: Margo Baker MD Primary Care Provider: EMPLOYMENT DIRECTOR PHYSICIAN Consult Narrative Narrative: Ira Vieira is a 20 year old female who is s/p vaginal delivery yesterday. She was consulted initially by Dr. Goldberg on 08.24.2020 for severe right hydronephrosis and right flank/abdominal pain. An US was done at that time which showed the hydronephrosis but no obstruction, it was thought to have been caused by her uterus. They decided to get a CT scan s/p delivery to further assess. She continues to have pain in the right side. Her CT scan today shows mild right hydronephrosis and hydroureter. A 1 mm calcification in right pelvis may be a phlebolith or ureteral stone. Review of Systems Cardiovascular: Cardiovascular: Denies chest pain Respiratory: Respiratory: Reports no additional respiratory complaints Gastrointestinal: Gastrointestinal: Reports abdominal pain, Denies nausea and Denies vomiting Genitourinary: Genitourinary: Denies dysuria, Reports pelvic pain, Reports flank pain, Denies urinary hesitancy, Denies urinary urgency and Reports vaginal discharge PMF Past Medical History Medical History Migraines Nephrolithiasis Recurrent urinary tract infection Surgical History Surgical History No pertinent past surgical history Family History Family History Grandparent Hypertension Liver cancer Mother Lung cancer Social History Social History Years smoked: 5 Smoking status: Current every day smoker Tobacco type: cigarettes Second hand tobacco smoke exposure: Yes Alcohol intake: current Substance use: never Substance use type: marijuana Additional living arrangements comments: The patient lives in [place] with her significant other and or 4-year-old son. Additional occupation/education comments: Unemployed, stay at home mom. Gender identity (if verbalized by the patient): Female Spiritual care concerns: No Meds Home Medications and Allergies Home Medications Medication Instructions Recorded Confirmed Type sertraline [Zoloft] 50 mg PO HS 02/10/20 09/08/20 History ergocalciferol (vitamin D2) 1,250 mcg PO WEEKLY 08/17/20 09/08/20 History [Vitamin D2] ferrous sulfate 142 mg PO DAILY 08/17/20 09/08/20 History prenat.vits,wendy,asa-kpnp-rpmxn 1 tablet PO DAILY 08/17/20 09/08/20 History hydrocodone-acetaminophen 1 tablet PO Q4H PRN #45 tablet 08/25/20 09/08/20 Rx promethazine 25 mg PO TID PRN #30 tablet 08/25/20 09/08/20 Rx [id number]-kgkslsnnyfmhp-sbfs 1 - 2 cap PO Q4H PRN 08/26/20 09/08/20 History Allergies Allergy/AdvReac Type Severity Reaction Status Date / Time ketorolac [From Toradol] Allergy Mild Itching Verified 08/17/20 15:30 Vital Signs Vital Signs - 24 hr 09/08/20 16:55 09/08/20 19:40 09/08/20 19:57 Temperature 98.3 F Pulse Rate 65 61 Respiratory Rate 20 Blood Pressure 134/89 148/93 H 148/93 H Pulse Oximetry 100 09/08/20 20:00 09/08/20 23:52 09/09/20 03:41 Temperature 98.5 F 98.7 F Pulse Rate 62 70 Respiratory Rate 20 18 18 Blood Pressure 131/75 145/76 H Pulse Oximetry 100
[2020-09-10 00:20] VITALS: BP 132/89
[2020-09-10 03:09] VITALS: BP 138/90; PULSE 60; RESP 18
[2020-09-10] MEDS: IBUPROFEN 600 MG TABLET PO ×2 (04:18→11:56)
[2020-09-10] MEDS: HYDROcodone/acetaminophen (*CRX) 10-325 MG TABLET 1 TAB PO (04:19)
[2020-09-10 07:30] VITALS: BP 146/91; PULSE 76; RESP 16; TEMP 36.6; O2SAT 100
[2020-09-10] MEDS: POLYSACCHARIDE IRON COMPLEX 150 MG CAPSULE PO (07:52)
[2020-09-10] MEDS: MULTIVIT/MIN/PREN/FOL AC/IRON TABLET 1 TAB PO (07:52)
[2020-09-10] MEDS: DOCUSATE SODIUM 100 MG CAPSULE PO (07:52)
[2020-09-10] MEDS: HYDROcodone/acetaminophen (*CRX) 5-325 MG TABLET 1 TAB PO ×2 (07:53→11:56)
--- NOTE | 2020-09-10 08:03 | PC.NURSE ---
Patient instructed viewing the discharge video Mother & Baby Care, The First Two Weeks . Patient was given the opportunity and encouraged to ask questions. Patient verbalized understanding of information shared and has been given the mother/baby guide for home reference. Pt. states she watched with last delivery.
[2020-09-12 10:58] VITALS: BP 127/88; PULSE 82; RESP 20; TEMP 37.1; O2SAT 100
== END 2020-09-10 13:30 | disposition home or self-care (01) | DRG 560 ==
LOC: ANHLDR 09-13 08:58 → ANHOB2 09-13 08:58
PROVIDERS: Admitting Provider Obstetrics & Gynecology Gynecology; Visit Provider Obstetrics & Gynecology
DX: O99.824 Streptococcus B carrier state complicating childbirth (principal); Z37.0 Single live birth; Z3A.39 39 weeks gestation of pregnancy; O99.892 Other specified diseases and conditions complicating childbirth; N13.2 Hydronephrosis with renal and ureteral calculous obstruction; O69.81X0 Labor and delivery complicated by cord around neck, without compression, not applicable or unspecified; O71.82 Other specified trauma to perineum and vulva
CPT/HCPCS: 36415; 74176; 85014; 85018; 85025; 86592; 86850; 86900; 86901; A9270; J0290; J2405; J2590; J2795; J3010; J7120

== ENCOUNTER 2021-01-03 15:58 | Emergency (ER) | payer OTHER, SELFPAY | END 2021-01-04 03:15 | disposition left against medical advice (07) | LOC: ANHED 16:23 | DX: Z53.21 Procedure and treatment not carried out due to patient leaving prior to being seen by health care provider (principal) | CPT/HCPCS: 99199 ==

== ENCOUNTER 2021-01-30 12:03 | Emergency (ER) | payer OTHER, SELFPAY ==
[2021-01-30 12:12] VITALS: BP 139/77; PULSE 93; RESP 18; TEMP 36.4; O2SAT 100
--- NOTE | 2021-01-30 14:21 | PC.NURSE ---
Pt noted to be exiting the department and getting into a car and leaving. Pt was no longer crying per intake personnel.
== END 2021-01-30 14:24 | disposition left against medical advice (07) ==
PROVIDERS: Emergency Provider Emergency Medicine
DX: F41.9 Anxiety disorder, unspecified (principal)
CPT/HCPCS: 99199

== ENCOUNTER 2021-05-31 09:03 | Outpatient (CLI) | payer OTHER, SELFPAY ==
--- NOTE | 2021-05-31 11:00 | NEURO_ITS ---
Impression: # Complains of upper extremity pain and numbness. History of thoracic outlet syndrome but no surgical intervention. # No Carpal Tunnel Syndrome or ulnar neuropathy. # Normal nerve conduction study including F-waves. # Normal needle/EMG exam. # Clinical correlation recommended. Nerve Conduction Studies Anti Sensory Summary Table Stim Site NR Peak (ms) P-T Amp (?V) Site1 Site2 Delta-P (ms) Dist (cm) Jayme (m/s) Left Median Anti Sensory (2-3nd Digit) Wrist 2.5 87.0 Wrist 2-3nd Digit 2.5 14.0 56 Wrist 2.6 75.7 Wrist 2-3nd Digit 2.5 14.0 56 Right Median Anti Sensory (2-3nd Digit) Wrist 2.4 72.6 Wrist 2-3nd Digit 2.4 14.0 58 Wrist 2.4 86.7 Wrist 2-3nd Digit 2.4 14.0 58 Left Radial Anti Sensory (Base 1st Digit) Wrist 1.9 34.2 Wrist Base 1st Digit 1.9 0.0 Right Radial Anti Sensory (Base 1st Digit) Wrist 2.0 16.2 Wrist Base 1st Digit 2.0 0.0 Left Ulnar Anti Sensory (5th Digit) Wrist 2.3 79.8 Wrist 5th Digit 2.3 14.0 61 Right Ulnar Anti Sensory (5th Digit) Wrist 2.0 91.2 Wrist 5th Digit 2.0 14.0 70 Motor Summary Table Stim Site NR Onset (ms) O-P Amp (mV) Site1 Site2 Delta-0 (ms) Dist (cm) Jayme (m/s) Left Median Motor (Abd Poll Brev) Wrist 2.7 3.3 Elbow Wrist 4.3 27.0 63 Elbow 7.0 4.5 Right Median Motor (Abd Poll Brev) Wrist 2.7 4.3 Elbow Wrist 4.3 26.0 60 Elbow 7.0 5.4 Left Ulnar Motor (Abd Dig Minimi) Wrist 2.4 6.8 A Elbow Wrist 4.0 26.0 65 A Elbow 6.4 5.6 Right Ulnar Motor (Abd Dig Minimi) Wrist 2.1 7.1 A Elbow Wrist 4.2 28.0 67 A Elbow 6.3 5.8 F Wave Studies NR F-Lat (ms) L-R F-Lat (ms) Left Median (Mrkrs) (Abd Poll Brev) 24.35 0.11 Right Median (Mrkrs) (Abd Poll Brev) 24.46 0.11 Left Ulnar (Mrkrs) (Abd Dig Min) 24.52 0.64 Right Ulnar (Mrkrs) (Abd Dig Min) 25.16 0.64 EMG Side Muscle Nerve Root Ins Act Fibs Amp Dur Recrt Comment Right 1stDorInt Ulnar C8-T1 Nml Nml Nml Nml Nml Right Ext Indicis Radial (Post Int) C7-8 Nml Nml Nml Nml Nml Right Ext Digitorum Radial (Post Int) C7-8 Nml Nml Nml Nml Nml Right BrachioRad Radial C5-6 Nml Nml Nml Nml Nml Right PronatorTeres Median C6-7 Nml Nml Nml Nml Nml Right Abd Poll Brev Median C8-T1 Nml Nml Nml Nml Nml Left 1stDorInt Ulnar C8-T1 Nml Nml Nml Nml Nml Left Ext Indicis Radial (Post Int) C7-8 Nml Nml Nml Nml Nml Left Ext Digitorum Radial (Post Int) C7-8 Nml Nml Nml Nml Nml Left BrachioRad Radial C5-6 Nml Nml Nml Nml Nml Left PronatorTeres Median C6-7 Nml Nml Nml Nml Nml Left Abd Poll Brev Median C8-T1 Nml Nml Nml Nml Nml Right ABD Dig Min Ulnar C8-T1 Nml Nml Nml Nml Nml Right Biceps Musculocut C5-6 Nml Nml Nml Nml Nml Right Triceps Radial C6-7-8 Nml Nml Nml Nml Nml Right Deltoid Axillary C5-6 Nml Nml Nml Nml Nml Left ABD Dig Min Ulnar C8-T1 Nml Nml Nml Nml Nml Left Biceps Musculocut C5-6 Nml Nml Nml Nml Nml Left Triceps Radial C6-7-8 Nml Nml Nml Nml Nml Left Deltoid Axillary C5-6 Nml Nml Nml Nml Nml MTDD
== END 2021-05-31 09:04 | disposition home or self-care (01) ==
LOC: ANHNEURO 09:05
PROVIDERS: Visit Provider Nurse Practitioner
DX: G62.9 Polyneuropathy, unspecified (principal)
CPT/HCPCS: 95886; 95911

== ENCOUNTER 2021-06-06 16:00 | Outpatient (CLI) | payer OTHER, SELFPAY ==
--- NOTE | ~2021-06-06 | XR_ITS ---
XR cervical spine 4-5V 06/06/2021 16:24 Indication: Neck pain Procedure: 5 views cervical spine Comparison: 06/12/2016 Findings: No fracture, subluxation or dislocation. Vertebral body and disc heights are preserved. No prevertebral soft tissue swelling. Lung apices are normal. Impression: 1: No significant abnormality of the cervical spine. Reviewed, dictated and finalized at location A. Impression: 1: No significant abnormality of the cervical spine.
== END 2021-06-06 16:01 | disposition home or self-care (01) ==
LOC: ANHIMG 16:04
PROVIDERS: PCP Nurse Practitioner; Visit Provider Nurse Practitioner
DX: G62.9 Polyneuropathy, unspecified (principal)
CPT/HCPCS: 72050

== ENCOUNTER 2022-01-12 15:39 | Outpatient (CLI) | payer OTHER, SELFPAY ==
[2022-01-12 16:08] LABS: Basophils Absolute Auto 0.1 K/mm3 (0.0-0.1); Basophils Percent Auto 0.7 % (0.2-1.2); Eosinophils Absolute Auto 0.1 K/mm3 (0-0.3); Eosinophils Percent Auto 1.2 % (0-4.4); Hematocrit 32.9 % (37.0-47.0); Hemoglobin 10.9 g/dL (12.0-15.0); Immature Granulocyte Absolute 0.02 K/mm3 (0.00-0.031); Immature Granulocyte Percent A 0.3 % (0-0.5); Lymphocytes Percent Auto 22.2 % (18.3-44.2); Mean Corpuscular HGB Conc 33.1 g/dl (32-36); Mean Corpuscular Hemoglobin 27.5 pg (26-34); Mean Corpuscular Volume 83.1 fl (80-100); Mean Platelet Volume 9.4 fl (7.4-10.4); Monocytes Absolute Auto 0.5 K/mm3 (0.1-0.6); Monocytes Percent Auto 6.1 % (2.6-8.5); Neutrophils Absolute Auto 5.3 K/mm3 (1.3-6.7); Neutrophils Percent Auto 69.5 % (45.5-73.1); Platelet Count Result 324 k/mm3 (150-375); Red Blood Count 3.96 M/mm3 (4.2-5.4); Red Cell Distribution Width 15.7 % (11.5-14.5); White Blood Count 7.7 K/mm3 (4.5-10.0)
[2022-01-12 16:51] LABS: HIV 1/2 Ab P24 Ag Result Negative (Negative)
[2022-01-12 17:35] LABS: Hepatitis B Surface Antigen Negative (Negative); Rubella IgG Antibody 36.1 IU/ML
[2022-01-15 08:30] LABS: Rapid Plasma Reagin Non-Reactive (NonReactive)
[2022-01-16 10:41] LABS: Varicella IgG Antibody <135.00 Index (>=165.00)
[2022-01-20 18:47] LABS: CF Result NEGATIVE (NEGATIVE); Ethnicity W
[2022-01-24 15:36] LABS: SMA 2.0 RISK VARIANT NOT DETECTED
[2022-01-26 15:04] LABS: SMA Results Received Yes
== END 2022-01-12 15:40 | disposition home or self-care (01) ==
LOC: ANHLAB 15:40
PROVIDERS: PCP Nurse Practitioner; Visit Provider Student in an Organized Health Care Education/Training Program
DX: N94.89 Other specified conditions associated with female genital organs and menstrual cycle (principal)
CPT/HCPCS: 36415; 81220; 81329; 84702; 85025; 86592; 86644; 86703; 86747; 86762; 86787; 86850; 86900; 86901; 87086; 87340; G0432

== ENCOUNTER 2022-03-30 16:08 | Emergency (ER) | payer OTHER, SELFPAY ==
--- NOTE | ~2022-03-30 | XR_ITS ---
XR foot RT min 3V DATE: 03/30/2022 17:12 INDICATION: Dropped a glass bowl on foot. Third toe injury, laceration TECHNIQUE: 4 views of right foot COMPARISON: None FINDINGS: No fracture or dislocation, periosteal reaction or bone destruction. No radiopaque soft tis tawanda foreign body or subcutaneous emphysema is noted. IMPRESSION: Negative Reviewed, dictated and finalized at location A. ING MACHINE OPERATOR HELPER IMPRESSION: Negative
[2022-03-30 16:17] VITALS: BP 148/81; PULSE 87; RESP 16; TEMP 36.2; O2SAT 99
--- NOTE | 2022-03-30 16:47 | ED.GENADULT ---
HPI - General Adult General Chief complaint: Extremity Injury, Lower Stated complaint: right foot injury, 18 weeks Time Seen by Provider: 03/30/22 16:20 Source: patient Mode of arrival: other (car) Limitations: no limitations History of Present Illness HPI narrative: Ira Vieira is a 22 y/o female who presents with complaints of right middle toe pain. She reports she dropped a bowl on her toe yesterday and now having more pain. She is not sure when her last Tetanus was and she is also 18 weeks . Related Data Home Medications Medication Instructions Recorded Confirmed prenat.vits,wendy,dkm-dchv-fspnd 1 tablet PO DAILY 08/17/20 09/08/20 amitriptyline 100 mg tablet 100 mg PO QHS 12/27/21 mirtazapine 30 mg tablet 30 mg PO DAILY 01/17/22 Allergies Allergy/AdvReac Type Severity Reaction Status Date / Time ketorolac [From Toradol] AdvReac Mild Nausea Verified 03/14/22 10:29 Review of Systems Review of Systems: CONSTITUTIONAL: Denies fever, chills, or sweats. EYES: Denies visual changes, redness, or discharge. ENT: Denies rhinorrhea, congestion, sore throat, or otalgia. CARDIOVASCULAR: Denies chest pain, palpitations, or edema. RESPIRATORY: Denies cough or dyspnea. GASTROINTESTINAL: Denies abdominal pain, nausea, vomiting, or diarrhea. GENITOURINARY: Denies dysuria or hematuria. SKIN: Denies rash or itching. MUSCULOSKELETAL: Complains of pain to right 3rd toe. NEUROLOGIC: Denies headache, numbness, dizziness, or weakness. PSYCHIATRIC: Denies anxiety or depression. [facility] Past Medical History Medical History Migraines Nephrolithiasis Pelvic congestion syndrome Recurrent urinary tract infection Suppression, menstruation Vaginitis Surgical History Surgical History H/O shoulder surgery No pertinent past surgical history Family History Family History Grandparent Hypertension Liver cancer Mother Lung cancer Social History Social History Years smoked: 5 Smoking status: Current every day smoker Tobacco type: cigarettes Second hand tobacco smoke exposure: Yes Alcohol intake: never Substance use: never Additional living arrangements comments: The patient lives in [place] with her significant other and or 4-year-old son. Additional occupation/education comments: Unemployed, stay at home mom. Gender identity (if verbalized by the patient): Female Sexual Orientation (if Verbalized by the Patient): Straight or Heterosexual Spiritual care concerns: No Exam Narrative: GENERAL: Well-appearing, well-nourished, and in no acute distress. HEAD: Normocephalic, atraumatic. EYES: PERRLA and EOMI. ENT: Nares clear, no rhinorrhea or epistaxis. Mucous membranes moist. Oropharynx without tonsillar hypertrophy exudate or other lesions. NECK: Supple. No adenopathy or masses. No carotid bruits or JVD CHEST: Clear to auscultation. No respiratory distress. No wheezes rales or rhonchi HEART: Regular rate and rhythm. No murmur heard. Normal peripheral pulses. ABDOMEN: Soft, nontender, nondistended, normal active bowel sounds. EXTREMITIES: erythema and ecchymosis to right middle toe, along with small open laceration. SKIN: Warm, dry, no rash. NEURO: No focal deficits. Alert and oriented x3. PSYCH: Normal mood and affect. Patient fistula Course Vital Signs Vital signs: Vital Signs Temperature 36.2 C L 03/30/22 16:17 Pulse Rate 87 03/30/22 16:17 Respiratory Rate 16 03/30/22 16:17 Blood Pressure 148/81 H 03/30/22 16:17 Pulse Oximetry 99 03/30/22 16:17 Oxygen Delivery Room Air 03/30/22 16:17 Temperature 36.2 C L 03/30/22 16:17 Pulse Rate 87 03/30/22 16:17 Respiratory Rate 16 03/30/22 16:17 Blood Pressure 148/81 H 03/30/22 16:17 Pulse Oximetry
== END 2022-03-30 18:42 | disposition home or self-care (01) ==
LOC: ANHED 18:30
PROVIDERS: Emergency Provider Nurse Practitioner Family; PCP Nurse Practitioner
DX: S90.121A Contusion of right lesser toe(s) without damage to nail, initial encounter (principal); Z87.442 Personal history of urinary calculi; Z87.440 Personal history of urinary (tract) infections; F17.210 Nicotine dependence, cigarettes, uncomplicated; W20.8XXA Other cause of strike by thrown, projected or falling object, initial encounter
CPT/HCPCS: 73630; 99283

== ENCOUNTER 2022-04-03 09:53 | Emergency (ER) | payer OTHER, SELFPAY ==
[2022-04-03] VITALS (7 sets, daily range): BP systolic 114–136; BP diastolic 61–89; PULSE 64–85; RESP 16–18; TEMP 36.6; O2SAT 98–100
--- NOTE | ~2022-04-03 | MR_ITS ---
EXAMINATION: MR abdomen wo con DATE: 04/03/2022 13:19 INDICATION: Right lower quadrant abdominal pain during TECHNIQUE: Magnetic resonance imaging (MRI) of the abdomen was performed without intravenous contrast . Sequences included axial, sagittal and coronal FS 2D-FIESTA, axial and coronal T2-weighted SS-FSE, axial STIR FSE, sagittal T2-weighted FS SS-FSE, axial dual-echo T1-weighted FSPGR, and axial T1-weigh lucy LAVA. COMPARISON: CT abdomen pelvis dated 09/09/2020 FINDINGS: with single intrauterine fetus in vertex position which is not diagnostically evaluated. Th e uterus measures 19.0 x 10.5 x 13.9 cm . Placenta is anterior with caudal margin 6.0 cm from the int ernal cervical os. Cervical length measures 4.3 cm. Mild right hydroureteronephrosis with smooth tape ring of the mid ureter where it passes between the uterus and the right psoas muscle consistent with extrinsic compression. Left kidney is normal. Gallbladder, pancreas and bilateral adrenal glands and visualized portions of the inferior liver and spleen appear normal. No intra-axial hepatic biliary du ctal dilation. Large amount of stool in the proximal colon. No dilated loops of bowel to suggest obst ruction. Normal appendix with no restricted diffusion or surrounding from trace stranding to suggest acute pancreatitis. Bladder is normal. Grade 1 anterolisthesis L5 on S1 with bilateral chronic fractu res across the bilateral inferior articular facets of L5 as noted on the prior CT. IMPRESSION: 1. Normal appendix. 2. Mild right hydroureteronephrosis which appears to result from extrinsic compression of the mid ure ter between the psoas muscle and the gravid uterus. Reviewed, dictated and finalized at location A. [facility] [employer] IMPRESSION: 1. Normal appendix. 2. Mild right hydroureteronephrosis which appears to result from extrinsic comp ression of the mid ureter between the psoas muscle and the gravid uterus.
[2022-04-03 11:14] LABS: Basophils Absolute Auto 0.1 K/mm3 (0.0-0.1); Basophils Percent Auto 0.7 % (0.2-1.2); Eosinophils Absolute Auto 0.4 K/mm3 (0-0.3); Hematocrit 32.6 % (37.0-47.0); Hemoglobin 10.8 g/dL (12.0-15.0); Immature Granulocyte Absolute 0.05 K/mm3 (0.00-0.031); Immature Granulocyte Percent A 0.6 % (0-0.5); Lymphocytes Percent Auto 26.5 % (18.3-44.2); Mean Corpuscular HGB Conc 33.1 g/dl (32-36); Mean Corpuscular Hemoglobin 28.9 pg (26-34); Mean Corpuscular Volume 87.2 fl (80-100); Mean Platelet Volume 9.8 fl (7.4-10.4); Monocytes Absolute Auto 0.6 K/mm3 (0.1-0.6); Monocytes Percent Auto 6.4 % (2.6-8.5); Neutrophils Absolute Auto 5.6 K/mm3 (1.3-6.7); Neutrophils Percent Auto 61.8 % (45.5-73.1); Platelet Count Result 333 k/mm3 (150-375); Red Blood Count 3.74 M/mm3 (4.2-5.4); Red Cell Distribution Width 16.1 % (11.5-14.5); White Blood Count 9.1 K/mm3 (4.5-10.0)
[2022-04-03] MEDS: LACTATED RINGERS 1,000 ML 999 ML IV CONT (11:16)
[2022-04-03 11:17] LABS: Appearance Urine Slightly Cloudy (Clear); Bilirubin Urine Negative (Negative); Blood Urine Negative (Negative); Color Urine Yellow (Yellow); Glucose Urine UA Negative (Negative); Ketones Urine Negative (Negative); Leukocyte Esterase Ur Trace LEU/UL (Negative); Nitrate Urine Negative (Negative); Protein Urine Negative (Negative); Urobilinogen Urine 0.2 mg/dL (<2.0); pH Urine 6.5 (5.0-9.0)
[2022-04-03] MEDS: ACETAMINOPHEN 500 MG TABLET 1000 MG PO ×2 (11:17→17:08)
[2022-04-03 11:26] LABS: Mucus Urine Rare /lpf; RBC Urine 0-2 /hpf (0-2); Squamous Epithelial Cell Urine Many /hpf (Few)
[2022-04-03 11:28] LABS: Alanine Aminotransferase 17 U/L (6-35); Albumin Level 3.6 g/dL (3.5-5.1); Alkaline Phosphatase 96 U/L (38-126); Anion Gap 6 mmol/L (8-16); Aspartate Amino Transferase 18 U/L (14-36); Bilirubin,Total < 0.1 mg/dL (0.2-1.3); Blood Urea Nitrogen 11 mg/dL (7-17); Calcium 8.7 mg/dL (8.4-10.2); Carbon Dioxide 22 mmol/L (22-30); Chloride 107 mmol/L (98-107); Estimated CRCL calculation 137 ml/min; Estimated Glomerular Filt Rate > 60; Glucose 101 mg/dL (65-110); Potassium 3.9 mmol/L (3.4-5.0); Sodium 135 mmol/L (137-145)
[2022-04-03 11:35] LABS: Add Urine Microscopic? YES
--- NOTE | 2022-04-03 13:14 | ED.FEMALEGU ---
HPI - Female Genitourinary General Chief complaint: Urogenital-Female Stated complaint: back pain/pain with urination - 18 weeks Time Seen by Provider: 04/03/22 10:11 History of Present Illness HPI Narrative: Patient who is 18 weeks with history of pelvic congestion syndrome presents here with pain in her right flank and lower abdomen, she is concerned about a recurrence of her symptoms since they were similar to what she had with her last which only improved after ovarian vein embolization, it has been going on for about a week, she did also endorse some dysuria. She has been having nausea ongoing since her and it is not increased today. No vaginal bleeding, she has the usual amount of vaginal discharge. Related Data Home Medications Medication Instructions Recorded Confirmed prenat.vits,wendy,nun-abqi-etbmi 1 tablet PO DAILY 08/17/20 09/08/20 amitriptyline 100 mg tablet 100 mg PO QHS 12/27/21 mirtazapine 30 mg tablet 30 mg PO DAILY 01/17/22 Allergies Allergy/AdvReac Type Severity Reaction Status Date / Time ketorolac [From Toradol] AdvReac Mild Nausea Verified 04/03/22 09:54 Review of Systems Review of Systems: CONST: No fever. HEENT: No sore throat C/V: No chest pain RESP: No cough GI: Reports right sided abdominal pain, nausea : Dysuria. M/S: No joint pain. SKIN: No rash. NEURO: [No headache or focal numbness or weakness] PSYCH: [No depression] [facility] Past Medical History Medical History Migraines Nephrolithiasis Pelvic congestion syndrome Recurrent urinary tract infection Suppression, menstruation Vaginitis Surgical History Surgical History H/O shoulder surgery No pertinent past surgical history Family History Family History Grandparent Hypertension Liver cancer Mother Lung cancer Social History Social History Years smoked: 5 Smoking status: Current every day smoker Tobacco type: cigarettes Second hand tobacco smoke exposure: Yes Alcohol intake: never Substance use: never Additional living arrangements comments: The patient lives in [place] with her significant other and or 4-year-old son. Additional occupation/education comments: Unemployed, stay at home mom. Gender identity (if verbalized by the patient): Female Sexual Orientation (if Verbalized by the Patient): Straight or Heterosexual Spiritual care concerns: No Exam Narrative: EXAMINATION OF ORGAN SYSTEMS/BODY AREAS: Constitutional: Vital signs per nursing GENERAL:[No acute distress, non-toxic appearing.] HEAD: Normal with no signs of head trauma. EYES: EOMI, conjunctiva normal ENT: Hearing grossly intact LUNGS: Nonlabored breathing. HEART: [Regular rate and rhythm] ABD: [Soft], [tender to palpation] right lower quadrant, CVA tenderness to left flank EXT: Normal range of motion SKIN: [No rashes or lesions.] NEURO: [Alert and oriented x 3. No gross focal sensory or strength deficits.] PSYCH: Normal affect Course Vital Signs Vital signs: Vital Signs Temperature 97.9 F 04/03/22 09:58 Pulse Rate 85 04/03/22 09:58 Respiratory Rate 18 04/03/22 09:58 Blood Pressure 126/76 04/03/22 09:58 Pulse Oximetry 100 04/03/22 09:58 Oxygen Delivery Room Air 04/03/22 09:58 Temperature 97.9 F 04/03/22 09:58 Pulse Rate 64 04/03/22 17:09 Respiratory Rate 16 04/03/22 17:09 Blood Pressure 120/67 04/03/22 17:09 Pulse Oximetry 98 04/03/22 17:09 Oxygen Delivery Room Air 04/03/22 09:58 MDM - Female Genitourinary MDM Narrative Medical decision making narrative: 22yoF @18wk p/w 1wk R flank/side pain, feels like her pelvic congestion syndrome which had flared during in past and only resolved w/ embolization of ovarian vein. VS
[2022-04-03 15:26] LABS: Influenza A QL RT-PCR Negative (Negative); Influenza B QL RT-PCR Negative (Negative); SARS-CoV-2 RNA PCR Negative
== END 2022-04-03 19:06 | disposition short-term general hospital (02) ==
PROVIDERS: Emergency Provider Emergency Medicine; PCP Nurse Practitioner
DX: O26.892 Other specified pregnancy related conditions, second trimester (principal); N13.5 Crossing vessel and stricture of ureter without hydronephrosis; R10.9 Unspecified abdominal pain; O99.332 Smoking (tobacco) complicating pregnancy, second trimester; F17.200 Nicotine dependence, unspecified, uncomplicated; Z3A.18 18 weeks gestation of pregnancy
CPT/HCPCS: 36415; 74181; 80053; 81001; 85025; 87636; 96361; 96365; 99284; A9270; J0696; J7120